=== PATIENT | female | born 1950 | race Caucasian/White ===

== ENCOUNTER 2017-10-12 14:00 | Inpatient (IN) | payer MEDICARE, OTHER ==
[~2017-10-12] VITALS: Ht 165.1 cm; Wt 69.6 kg
[~2017-10-12 14:00] MED LIST: ACET500; AMLO5 PO; ASCO500; ASPI81CH PO; ATOR20 PO; Amiodarone HCl200 MG PO; DILT180ER PO; DOCU100 PO; Daily Multiple1 EACH PO; FERSU220EL; FOLI1 PO; HYDCHL25 PO; OXYC5; POTCHL10ER PO; TRIHYD5075; VITAMIN D33000 UNIT PO
[2017-10-12] MEDS ORDERED: AZIT250 PO (14:55)
[2017-10-12] MEDS ORDERED: Ventolin/Prove6.7 GM (14:55)
[2017-10-12] MEDS ORDERED: SPIR25 PO (14:55)
[2017-10-12] MEDS ORDERED: DILTIAZEM 24HR180 M2 PO (14:55)
[2017-10-12 15:03] LABS: BASOPHILS ABSOLUTE AUTO 0.06 K/mm3 (0.00-0.23); BASOPHILS PERCENT AUTO 1 % (0-2); EOSINOPHILS PERCENT AUTO 2 % (0-6); Hematocrit 41.1 % (33.0-51.0); Hemoglobin 13.9 g/dL (11.5-16.0); IMMATURE GRAN ABSOLUTE AUTO 0.04 K/mm3 (0.00-0.10); IMMATURE GRAN PERCENT AUTO 0 % (0-1); LYMPHOCYTES ABSOLUTE AUTO 1.44 K/mm3 (0.84-5.20); LYMPHOCYTES PERCENT AUTO 15 % (21-46); MONOCYTES ABSOLUTE AUTO 0.83 K/mm3 (0.16-1.47); MONOCYTES PERCENT AUTO 8 % (4-13); Mean Corpuscular HGB 29.7 pg (26.0-34.0); Mean Corpuscular HGB Conc 33.8 g/dL (31.5-36.5); Mean Corpuscular Volume 88 fL (80-100); NEUTROPHILS ABSOLUTE AUTO 7.39 K/mm3 (1.96-9.15); NEUTROPHILS PERCENT AUTO 74 % (41-73); Platelet Count 370 K/mm3 (150-400); RDW Coefficient Variation 12.3 % (11.7-14.2); RDW Standard Deviation 39.2 fL (35.1-46.3); Red Blood Cell Count 4.68 M/mm3 (3.80-5.20); White Blood Cell Count 9.96 K/mm3 (4.00-11.30)
[2017-10-12 15:21] LABS: Alanine Aminotransfer (ALT/SGP 14 U/L (12-78); Albumin, Blood 2.7 g/dL (3.4-5.0); Albumin/Globulin Ratio 0.6 (0.8-1.8); Alk Phos 99 U/L (50-136); Anion Gap 11 mmol/L (6-16); Aspartate Aminotrans (AST/SGOT 22 U/L (12-37); Bilirubin, Total 0.5 mg/dL (0.1-1.0); Blood Urea Nitrogen 11 mg/dL (8-24); Bun/Creatinine Ratio 17.5 (12.0-20.0); CO2, Blood 23 mmol/L (21-32); Calcium, Blood 8.3 mg/dL (8.5-10.1); Chloride, Blood 105 mmol/L (98-108); Creatinine, Blood 0.63 mg/dL (0.40-1.00); Globulin, Blood 4.4 g/dL (2.2-4.0); Glomerular Filtration Rate >60 (60-); Glucose, Blood 129 mg/dL (70-99); Potassium, Blood 3.9 mmol/L (3.5-5.5); Sodium, Blood 139 mmol/L (136-145); Total Protein, Blood 7.1 g/dL (6.4-8.2); Troponin I <0.015 ng/mL (0.000-0.040)
[2017-10-13] MEDS ORDERED: ELIQUIS5 MG PO (00:23)
[2017-10-13] MEDS ORDERED: ALEN70 PO (00:24)
[2017-10-13 11:31] LABS: Antinuclear Antibody Screen Negative (Negative)
[2017-10-14 04:48] LABS: BASOPHILS ABSOLUTE AUTO 0.07 K/mm3 (0.00-0.23); BASOPHILS PERCENT AUTO 1 % (0-2); EOSINOPHILS ABSOLUTE AUTO 0.26 K/mm3 (0.00-0.68); EOSINOPHILS PERCENT AUTO 2 % (0-6); Hematocrit 40.3 % (33.0-51.0); Hemoglobin 13.4 g/dL (11.5-16.0); IMMATURE GRAN ABSOLUTE AUTO 0.05 K/mm3 (0.00-0.10); IMMATURE GRAN PERCENT AUTO 0 % (0-1); LYMPHOCYTES ABSOLUTE AUTO 1.17 K/mm3 (0.84-5.20); LYMPHOCYTES PERCENT AUTO 9 % (21-46); MONOCYTES ABSOLUTE AUTO 1.03 K/mm3 (0.16-1.47); MONOCYTES PERCENT AUTO 8 % (4-13); Mean Corpuscular HGB 29.2 pg (26.0-34.0); Mean Corpuscular HGB Conc 33.3 g/dL (31.5-36.5); Mean Corpuscular Volume 88 fL (80-100); Mean Platelet Volume 11.1 fL (9.1-12.4); NEUTROPHILS ABSOLUTE AUTO 9.92 K/mm3 (1.96-9.15); NEUTROPHILS PERCENT AUTO 79 % (41-73); Platelet Count 355 K/mm3 (150-400); RDW Coefficient Variation 12.2 % (11.7-14.2); Red Blood Cell Count 4.59 M/mm3 (3.80-5.20)
[2017-10-14 05:09] LABS: Albumin, Blood 2.3 g/dL (3.4-5.0); Anion Gap 10 mmol/L (6-16); Blood Urea Nitrogen 10 mg/dL (8-24); CO2, Blood 24 mmol/L (21-32); Calcium, Blood 8.2 mg/dL (8.5-10.1); Chloride, Blood 106 mmol/L (98-108); Creatinine, Blood 0.56 mg/dL (0.40-1.00); Glomerular Filtration Rate >60 (60-); Glucose, Blood 118 mg/dL (70-99); Phosphorus, Blood 3.2 mg/dL (2.5-4.9); Potassium, Blood 4.2 mmol/L (3.5-5.5); Sodium, Blood 140 mmol/L (136-145)
[2017-10-14 14:26] LABS: Performing Lab SYMBIODX; Test Name FLOW CYTOMETRY
[2017-10-14 14:56] LABS: RA, SEMIQUANTITATIVE 32 IU/ml (<8); Rheumatoid Factor, Serum Positive (Negative)
[2017-10-14 20:36] LABS: PCO2 Arterial 32.4 mmHg (35-45); PO2 Arterial 75.9 mmHg (80-100); pH Blood Arterial 7.47 (7.35-7.45)
[2017-10-15 05:14] LABS: BASOPHILS ABSOLUTE AUTO 0.09 K/mm3 (0.00-0.23); BASOPHILS PERCENT AUTO 1 % (0-2); EOSINOPHILS ABSOLUTE AUTO 0.29 K/mm3 (0.00-0.68); EOSINOPHILS PERCENT AUTO 2 % (0-6); Hematocrit 39.6 % (33.0-51.0); Hemoglobin 13.2 g/dL (11.5-16.0); IMMATURE GRAN ABSOLUTE AUTO 0.04 K/mm3 (0.00-0.10); IMMATURE GRAN PERCENT AUTO 0 % (0-1); LYMPHOCYTES ABSOLUTE AUTO 1.28 K/mm3 (0.84-5.20); LYMPHOCYTES PERCENT AUTO 10 % (21-46); MONOCYTES ABSOLUTE AUTO 0.96 K/mm3 (0.16-1.47); MONOCYTES PERCENT AUTO 7 % (4-13); Mean Corpuscular HGB 29.2 pg (26.0-34.0); Mean Corpuscular HGB Conc 33.3 g/dL (31.5-36.5); Mean Corpuscular Volume 88 fL (80-100); Mean Platelet Volume 11.8 fL (9.1-12.4); NEUTROPHILS ABSOLUTE AUTO 10.73 K/mm3 (1.96-9.15); NEUTROPHILS PERCENT AUTO 80 % (41-73); Platelet Count 353 K/mm3 (150-400); RDW Coefficient Variation 12.2 % (11.7-14.2); RDW Standard Deviation 39.3 fL (35.1-46.3); Red Blood Cell Count 4.52 M/mm3 (3.80-5.20); White Blood Cell Count 13.39 K/mm3 (4.00-11.30)
[2017-10-15 05:35] LABS: Anion Gap 8 mmol/L (6-16); Blood Urea Nitrogen 15 mg/dL (8-24); Bun/Creatinine Ratio 24.8 (12.0-20.0); CO2, Blood 25 mmol/L (21-32); Calcium, Blood 8.5 mg/dL (8.5-10.1); Chloride, Blood 104 mmol/L (98-108); Glomerular Filtration Rate >60 (60-); Glucose, Blood 108 mg/dL (70-99); Potassium, Blood 4.2 mmol/L (3.5-5.5); Sodium, Blood 137 mmol/L (136-145)
[2017-10-15 10:29] LABS: Adenovirus Not Detected (NOT DETECT); Bordetella pertussis Not Detected (NOT DETECT); Chlamydophila pneumoniae Not Detected (NOT DETECT); Coronavirus 229E Not Detected (NOT DETECT); Coronavirus HKU1 Not Detected (NOT DETECT); Coronavirus NL63 Not Detected (NOT DETECT); Coronavirus OC43 Not Detected (NOT DETECT); Human Metapneumovirus Not Detected (NOT DETECT); Human Rhinovirus/Enterovirus Not Detected (NOT DETECT); Influenza A/2009-H1 Not Detected (NOT DETECT); Influenza A/H1 Not Detected (NOT DETECT); Influenza A/H3 Not Detected (NOT DETECT); Influenza B Not Detected (NOT DETECT); Mycoplasma pneumoniae Not Detected (NOT DETECT); Parainfluenza Virus 1 Not Detected (NOT DETECT); Parainfluenza Virus 2 Not Detected (NOT DETECT); Parainfluenza Virus 3 Not Detected (NOT DETECT); Parainfluenza Virus 4 Not Detected (NOT DETECT); Respiratory Syncytial Virus Not Detected (NOT DETECT)
[2017-10-15 12:34] LABS: Influenza A Not Detected (NOT DETECT)
[2017-10-16 04:12] LABS: BASOPHILS ABSOLUTE AUTO 0.07 K/mm3 (0.00-0.23); BASOPHILS PERCENT AUTO 1 % (0-2); EOSINOPHILS PERCENT AUTO 3 % (0-6); Hematocrit 38.4 % (33.0-51.0); Hemoglobin 12.8 g/dL (11.5-16.0); IMMATURE GRAN ABSOLUTE AUTO 0.06 K/mm3 (0.00-0.10); IMMATURE GRAN PERCENT AUTO 0 % (0-1); LYMPHOCYTES ABSOLUTE AUTO 1.15 K/mm3 (0.84-5.20); LYMPHOCYTES PERCENT AUTO 8 % (21-46); MONOCYTES ABSOLUTE AUTO 1.18 K/mm3 (0.16-1.47); MONOCYTES PERCENT AUTO 8 % (4-13); Mean Corpuscular HGB Conc 33.3 g/dL (31.5-36.5); Mean Corpuscular Volume 87 fL (80-100); Mean Platelet Volume 11.2 fL (9.1-12.4); NEUTROPHILS ABSOLUTE AUTO 11.16 K/mm3 (1.96-9.15); NEUTROPHILS PERCENT AUTO 80 % (41-73); Platelet Count 344 K/mm3 (150-400); RDW Coefficient Variation 12.1 % (11.7-14.2); RDW Standard Deviation 39.1 fL (35.1-46.3); Red Blood Cell Count 4.42 M/mm3 (3.80-5.20); White Blood Cell Count 14.02 K/mm3 (4.00-11.30)
[2017-10-16 04:28] LABS: Anion Gap 9 mmol/L (6-16); Blood Urea Nitrogen 12 mg/dL (8-24); Bun/Creatinine Ratio 19.9 (12.0-20.0); CO2, Blood 25 mmol/L (21-32); Calcium, Blood 8.2 mg/dL (8.5-10.1); Chloride, Blood 104 mmol/L (98-108); Glomerular Filtration Rate >60 (60-); Glucose, Blood 114 mg/dL (70-99); Magnesium, Blood 1.9 mg/dL (1.6-2.4); Phosphorus, Blood 3.1 mg/dL (2.5-4.9); Sodium, Blood 138 mmol/L (136-145)
[2017-10-17 15:08] LABS: HSV-1 DNA Negative (Negative); HSV-2 DNA Negative (Negative)
[2017-10-19 04:25] LABS: BASOPHILS ABSOLUTE AUTO 0.02 K/mm3 (0.00-0.23); BASOPHILS PERCENT AUTO 0 % (0-2); EOSINOPHILS PERCENT AUTO 0 % (0-6); Hematocrit 37.7 % (33.0-51.0); Hemoglobin 12.5 g/dL (11.5-16.0); IMMATURE GRAN ABSOLUTE AUTO 0.21 K/mm3 (0.00-0.10); IMMATURE GRAN PERCENT AUTO 1 % (0-1); LYMPHOCYTES ABSOLUTE AUTO 1.19 K/mm3 (0.84-5.20); LYMPHOCYTES PERCENT AUTO 6 % (21-46); MONOCYTES ABSOLUTE AUTO 0.37 K/mm3 (0.16-1.47); MONOCYTES PERCENT AUTO 2 % (4-13); Mean Corpuscular HGB Conc 33.2 g/dL (31.5-36.5); Mean Corpuscular Volume 88 fL (80-100); Mean Platelet Volume 11.5 fL (9.1-12.4); NEUTROPHILS ABSOLUTE AUTO 19.25 K/mm3 (1.96-9.15); NEUTROPHILS PERCENT AUTO 91 % (41-73); Platelet Count 458 K/mm3 (150-400); RDW Standard Deviation 38.6 fL (35.1-46.3); Red Blood Cell Count 4.31 M/mm3 (3.80-5.20); White Blood Cell Count 21.04 K/mm3 (4.00-11.30)
[2017-10-19 05:20] LABS: Anion Gap 10 mmol/L (6-16); Blood Urea Nitrogen 23 mg/dL (8-24); Bun/Creatinine Ratio 42.4 (12.0-20.0); CO2, Blood 24 mmol/L (21-32); Calcium, Blood 8.4 mg/dL (8.5-10.1); Chloride, Blood 105 mmol/L (98-108); Creatinine, Blood 0.54 mg/dL (0.40-1.00); Glomerular Filtration Rate >60 (60-); Glucose, Blood 237 mg/dL (70-99); Potassium, Blood 4.2 mmol/L (3.5-5.5); Sodium, Blood 139 mmol/L (136-145)
[2017-10-20 05:32] LABS: BASOPHILS ABSOLUTE AUTO 0.02 K/mm3 (0.00-0.23); BASOPHILS PERCENT AUTO 0 % (0-2); EOSINOPHILS PERCENT AUTO 0 % (0-6); Hematocrit 39.9 % (33.0-51.0); Hemoglobin 13.2 g/dL (11.5-16.0); IMMATURE GRAN ABSOLUTE AUTO 0.11 K/mm3 (0.00-0.10); IMMATURE GRAN PERCENT AUTO 1 % (0-1); LYMPHOCYTES ABSOLUTE AUTO 1.16 K/mm3 (0.84-5.20); LYMPHOCYTES PERCENT AUTO 7 % (21-46); MONOCYTES ABSOLUTE AUTO 0.33 K/mm3 (0.16-1.47); MONOCYTES PERCENT AUTO 2 % (4-13); Mean Corpuscular HGB 29.1 pg (26.0-34.0); Mean Corpuscular HGB Conc 33.1 g/dL (31.5-36.5); Mean Corpuscular Volume 88 fL (80-100); Mean Platelet Volume 11.4 fL (9.1-12.4); NEUTROPHILS ABSOLUTE AUTO 14.91 K/mm3 (1.96-9.15); NEUTROPHILS PERCENT AUTO 90 % (41-73); Platelet Count 447 K/mm3 (150-400); RDW Coefficient Variation 11.9 % (11.7-14.2); RDW Standard Deviation 38.4 fL (35.1-46.3); Red Blood Cell Count 4.53 M/mm3 (3.80-5.20); White Blood Cell Count 16.53 K/mm3 (4.00-11.30)
[2017-10-20 05:56] LABS: Anion Gap 11 mmol/L (6-16); Blood Urea Nitrogen 21 mg/dL (8-24); Bun/Creatinine Ratio 43.7 (12.0-20.0); CO2, Blood 24 mmol/L (21-32); Calcium, Blood 8.1 mg/dL (8.5-10.1); Chloride, Blood 104 mmol/L (98-108); Creatinine, Blood 0.48 mg/dL (0.40-1.00); Glomerular Filtration Rate >60 (60-); Glucose, Blood 212 mg/dL (70-99); Potassium, Blood 3.9 mmol/L (3.5-5.5); Sodium, Blood 139 mmol/L (136-145)
[2017-10-20 07:53] LABS: Result SEE LABOUT RESULTS
[2017-10-21 06:18] LABS: AFB SPECIMEN PROCESSING Concentration (.)
[2017-10-21] MEDS ORDERED: Humulin R500 UNIT/1 SC (14:15)
[2017-10-21] MEDS ORDERED: PRED20 (14:16)
[2017-10-21] MEDS ORDERED: ALBU2.5V5 NEB (14:25)
[2017-10-21] MEDS ORDERED: DEEP SEA44 ML (14:28)
== END 2017-10-21 16:54 | disposition home or self-care (01) | DRG 166 ==
LOC: ER 14:00 → PCU 17:23 → MEDS 17:23 → ICUE 17:23 → MEDS 18:23 → ICUE 10-14 21:14 → PCU 10-15 20:45 → MEDS 10-16 21:14
PROVIDERS: Family Medicine; Internal Medicine; Internal Medicine Critical Care Medicine
PROC: 5A09457 Assistance with Respiratory Ventilation, 24-96 Consecutive Hours, Continuous Positive Airway Pressure (ICD-10-PCS; 2017-10-14)
PROC: 0B9H8ZX Drainage of Lung Lingula, Via Natural or Artificial Opening Endoscopic, Diagnostic (ICD-10-PCS; principal; 2017-10-14 12:30)
PROC: 0BBD8ZZ Excision of Right Middle Lung Lobe, Via Natural or Artificial Opening Endoscopic (ICD-10-PCS; 2017-10-14 12:30)
DX: J84.116 Cryptogenic organizing pneumonia (principal); J96.21 Acute and chronic respiratory failure with hypoxia; I50.32 Chronic diastolic (congestive) heart failure; I48.91 Unspecified atrial fibrillation; I11.0 Hypertensive heart disease with heart failure; E78.5 Hyperlipidemia, unspecified; M81.0 Age-related osteoporosis without current pathological fracture; R04.0 Epistaxis; Z95.3 Presence of xenogenic heart valve; Z87.891 Personal history of nicotine dependence; Z79.01 Long term (current) use of anticoagulants; Z79.83 Long term (current) use of bisphosphonates; R73.9 Hyperglycemia, unspecified; T38.0X5A Adverse effect of glucocorticoids and synthetic analogues, initial encounter
CPT/HCPCS: 36415; 36600; 71045; 71046; 71260; 80048; 80053; 80069; 82803; 82947; 83735; 83880; 84100; 84443; 84484; 85025; 85651; 86038; 86430; 86431; 87070; 87205; 87449; 87486; 87529; 87581; 87633; 87798; 88108; 88305; 88312; 93005; 93010; 94640; 94660; 94760; 94761; 94762; 96365; 99285-25; J0696; J1650; J1815; J2001; J2250; J2930; J3010; J7120; Q9967

== ENCOUNTER → 2017-11-18 | Outpatient (CLI) | payer MEDICARE, OTHER ==
[~2017-11-18] MED LIST changes: +ALBU2.5V5 NEB; +ALEN70 PO; +AZIT250 PO; +DEEP SEA44 ML; +DILTIAZEM 24HR180 M2 PO; +ELIQUIS5 MG PO; +Humulin R500 UNIT/1 SC; +PRED20; +SPIR25 PO; +Ventolin/Prove6.7 GM
== END | disposition home or self-care (01) ==
LOC: PLD 14:51 → LAB SHORT 14:51
DX: D48.5 Neoplasm of uncertain behavior of skin (principal)
CPT/HCPCS: 88305

== ENCOUNTER → 2018-07-02 | Outpatient (CLI) | payer MEDICARE, OTHER | END | disposition home or self-care (01) | LOC: LAB SHORT 07:45 → PLD 07:45 | DX: C44.729 Squamous cell carcinoma of skin of left lower limb, including hip (principal) | CPT/HCPCS: 88305 ==

== ENCOUNTER → 2018-09-08 | Outpatient (CLI) | payer MEDICARE, OTHER | END | disposition home or self-care (01) | LOC: PLD 14:14 → LAB SHORT 14:14 | DX: C44.729 Squamous cell carcinoma of skin of left lower limb, including hip (principal) | CPT/HCPCS: 88305 ==

== ENCOUNTER → 2018-10-06 | Outpatient (CLI) | payer MEDICARE, OTHER | END | disposition home or self-care (01) | LOC: LAB SHORT 07:56 → PLD 07:56 | DX: C44.729 Squamous cell carcinoma of skin of left lower limb, including hip (principal) | CPT/HCPCS: 88305 ==

== ENCOUNTER → 2018-11-18 | Outpatient (CLI) | payer MEDICARE, OTHER | END | disposition home or self-care (01) | LOC: LAB SHORT 10:43 → PLD 10:43 | DX: C44.519 Basal cell carcinoma of skin of other part of trunk (principal); D22.5 Melanocytic nevi of trunk | CPT/HCPCS: 88305 ==

== ENCOUNTER → 2020-05-31 | Outpatient (CLI) | payer MEDICARE, OTHER | END | disposition home or self-care (01) | LOC: LAB SHORT 11:34 → LAB 11:34 | DX: D22.5 Melanocytic nevi of trunk (principal); L57.0 Actinic keratosis | CPT/HCPCS: 88305; 88312 ==

== ENCOUNTER → 2020-12-06 | Outpatient (CLI) | payer MEDICARE, OTHER | END | disposition home or self-care (01) | LOC: LAB 11:06 → LAB SHORT 11:06 | DX: C44.01 Basal cell carcinoma of skin of lip (principal); C44.41 Basal cell carcinoma of skin of scalp and neck | CPT/HCPCS: 88305 ==

== ENCOUNTER → 2021-01-24 | Outpatient (CLI) | payer MEDICARE, OTHER | LOC: LAB SHORT 14:53 → LAB 14:53 | DX: C44.41 Basal cell carcinoma of skin of scalp and neck (principal); Z91.048 Other nonmedicinal substance allergy status; Z91.040 Latex allergy status | CPT/HCPCS: 88305 ==

== ENCOUNTER 2021-01-25 00:28 | Emergency (ER) | payer MEDICARE, OTHER ==
[~2021-01-25] VITALS: Ht 165.1 cm; Wt 68.0 kg
== END 2021-01-25 04:21 | disposition home or self-care (01) ==
LOC: ER 00:28
DX: L76.22 Postprocedural hemorrhage of skin and subcutaneous tissue following other procedure (principal); I50.9 Heart failure, unspecified; Z91.040 Latex allergy status; Z91.048 Other nonmedicinal substance allergy status; Z79.82 Long term (current) use of aspirin; Z79.4 Long term (current) use of insulin; Z79.899 Other long term (current) drug therapy; Z79.52 Long term (current) use of systemic steroids; Z87.891 Personal history of nicotine dependence
CPT/HCPCS: 99283

== ENCOUNTER 2021-09-27 10:05 | Day surgery (SDC) | payer MEDICARE, OTHER ==
[~2021-09-27] VITALS: Ht 165.1 cm; Wt 71.1 kg
[~2021-09-27 10:05] MED LIST changes: +ALBU90OI INH; +METF500 PO
--- NOTE | 2021-09-27 10:55 | NUR ---
09/27/21 Luisa Chairez @ 5500, LYNDSEY @ [id number]
--- NOTE | 2021-09-27 12:26 | NUR ---
09/27/21 1226 Marlin Santiago S PT. DID MENTION THAT SHE HAD SOME STINGING IN HER RIGHT EYE. PT. INSTRUCTED THAT IF IT BOTHERED HER SHE COULD TAKE OTC PAIN RELIEVER OR JUST LAYING BACK & SHUTTING HER EYE MAY HELP ALSO. INSTRUCTED PT. THAT THE EYE DROPS COULD CAUSE SOME STINGING TOO. PT. VERBALIZES THE EYE DROPS DO STING & SHE DOES CLOSE HER EYE WHICH HELPS.
== END 2021-09-27 12:15 | disposition home or self-care (01) ==
LOC: ORSCSDS 10:05
PROVIDERS: Ophthalmology
PROC: 08RJ3JZ Replacement of Right Lens with Synthetic Substitute, Percutaneous Approach (ICD-10-PCS; principal; 2021-09-27 11:30)
DX: H25.11 Age-related nuclear cataract, right eye (principal); I48.0 Paroxysmal atrial fibrillation; I47.1 Supraventricular tachycardia; Z79.01 Long term (current) use of anticoagulants; Z79.899 Other long term (current) drug therapy
CPT/HCPCS: 82947; J2001; J2250; J3010; J3301; J7040; V2632

== ENCOUNTER → 2022-01-02 | Outpatient (CLI) | payer MEDICARE, OTHER | END | disposition home or self-care (01) | LOC: LAB SHORT 11:07 → LAB 11:07 | DX: C44.311 Basal cell carcinoma of skin of nose (principal) | CPT/HCPCS: 88305 ==

== ENCOUNTER 2022-12-10 10:29 | Emergency (ER) | payer MEDICARE, OTHER ==
[~2022-12-10] VITALS: Ht 165.1 cm; Wt 65.3 kg
[~2022-12-10 10:29] MED LIST changes: +DILT180 PO; -DILTIAZEM 24HR180 M2 PO
[2022-12-10] MEDS ORDERED: HYDCHL25 PO (10:53)
[2022-12-10 10:56] LABS: BASOPHILS ABSOLUTE AUTO 0.05 K/mm3 (0.00-0.23); BASOPHILS PERCENT AUTO 1 % (0-2); EOSINOPHILS ABSOLUTE AUTO 0.15 K/mm3 (0.00-0.68); EOSINOPHILS PERCENT AUTO 2 % (0-6); Hematocrit 42.2 % (33.0-51.0); Hemoglobin 14.8 g/dL (11.5-16.0); IMMATURE GRAN ABSOLUTE AUTO 0.02 K/mm3 (0.00-0.10); IMMATURE GRAN PERCENT AUTO 0 % (0-1); LYMPHOCYTES ABSOLUTE AUTO 1.66 K/mm3 (0.84-5.20); LYMPHOCYTES PERCENT AUTO 18 % (21-46); MONOCYTES ABSOLUTE AUTO 0.64 K/mm3 (0.16-1.47); MONOCYTES PERCENT AUTO 7 % (4-13); Mean Corpuscular HGB 30.7 pg (26.0-34.0); Mean Corpuscular HGB Conc 35.1 g/dL (31.5-36.5); Mean Corpuscular Volume 88 fL (80-100); Mean Platelet Volume 12.6 fL (9.1-12.4); NEUTROPHILS ABSOLUTE AUTO 6.87 K/mm3 (1.96-9.15); NEUTROPHILS PERCENT AUTO 73 % (41-73); Platelet Count 303 K/mm3 (150-400); RDW Coefficient Variation 13.3 % (11.7-14.2); RDW Standard Deviation 41.9 fL (35.1-46.3); Red Blood Cell Count 4.82 M/mm3 (3.80-5.20); White Blood Cell Count 9.39 K/mm3 (4.00-11.30)
[2022-12-10 11:50] LABS: Bun/Creatinine Ratio 16.9 (12.0-20.0); Calcium, Blood 8.8 mg/dL (8.5-10.1); Creatinine, Blood 0.71 mg/dL (0.40-1.00); Potassium, Blood 4.2 mmol/L (3.5-5.5); Thyroid Stimulating Hormone 1.24 uIU/mL (0.360-4.800)
[2022-12-10 12:13] VITALS: BP 115/99
[2022-12-10] MEDS ORDERED: Toprol Xl25 MG PO (12:51)
== END 2022-12-10 13:12 | disposition home or self-care (01) ==
LOC: ER 10:29
PROVIDERS: Emergency Medicine
DX: I48.91 Unspecified atrial fibrillation (principal); Z91.040 Latex allergy status; Z91.048 Other nonmedicinal substance allergy status; Z88.8 Allergy status to other drugs, medicaments and biological substances; Z79.899 Other long term (current) drug therapy; Z79.82 Long term (current) use of aspirin; Z79.84 Long term (current) use of oral hypoglycemic drugs; I50.9 Heart failure, unspecified; Z87.891 Personal history of nicotine dependence
CPT/HCPCS: 71045; 80048; 84443; 85025; 93005; 93010; 96374; 99285-25; J7030

== ENCOUNTER 2023-01-05 23:10 | Observation (INO) | payer MEDICARE, OTHER ==
[~2023-01-05] VITALS: Ht 165.1 cm; Wt 64.4 kg
[~2023-01-05 23:10] MED LIST changes: +Toprol Xl25 MG PO
[2023-01-05 23:52] LABS: BASOPHILS ABSOLUTE AUTO 0.04 K/mm3 (0.00-0.23); BASOPHILS PERCENT AUTO 0 % (0-2); EOSINOPHILS ABSOLUTE AUTO 0.34 K/mm3 (0.00-0.68); EOSINOPHILS PERCENT AUTO 4 % (0-6); Hematocrit 42.3 % (33.0-51.0); Hemoglobin 14.2 g/dL (11.5-16.0); IMMATURE GRAN ABSOLUTE AUTO 0.01 K/mm3 (0.00-0.10); IMMATURE GRAN PERCENT AUTO 0 % (0-1); LYMPHOCYTES ABSOLUTE AUTO 1.97 K/mm3 (0.84-5.20); LYMPHOCYTES PERCENT AUTO 22 % (21-46); MONOCYTES PERCENT AUTO 9 % (4-13); Mean Corpuscular HGB 30.2 pg (26.0-34.0); Mean Corpuscular HGB Conc 33.6 g/dL (31.5-36.5); Mean Corpuscular Volume 90 fL (80-100); NEUTROPHILS ABSOLUTE AUTO 5.76 K/mm3 (1.96-9.15); NEUTROPHILS PERCENT AUTO 65 % (41-73); Platelet Count 226 K/mm3 (150-400); RDW Coefficient Variation 13.3 % (11.7-14.2); RDW Standard Deviation 43.8 fL (35.1-46.3); White Blood Cell Count 8.92 K/mm3 (4.00-11.30)
[2023-01-06 00:13] LABS: Albumin, Blood 3.7 g/dL (3.4-5.0); Albumin/Globulin Ratio 1.1 (0.8-1.8); Bilirubin, Total 0.6 mg/dL (0.1-1.0); Bun/Creatinine Ratio 26.8 (12.0-20.0); Calcium, Blood 9.3 mg/dL (8.5-10.1); Creatinine, Blood 0.86 mg/dL (0.40-1.00); Globulin, Blood 3.4 g/dL (2.2-4.0); Potassium, Blood 3.8 mmol/L (3.5-5.5); Total Protein, Blood 7.1 g/dL (6.4-8.2)
[2023-01-06 02:38] LABS: Thyroid Stimulating Hormone 2.39 uIU/mL (0.360-4.800)
[2023-01-06 04:00] VITALS: BP 135/92
[2023-01-06] MEDS ORDERED: METO100ER PO (04:08)
[2023-01-06 04:10] LABS: BASOPHILS ABSOLUTE AUTO 0.06 K/mm3 (0.00-0.23); BASOPHILS PERCENT AUTO 1 % (0-2); EOSINOPHILS ABSOLUTE AUTO 0.32 K/mm3 (0.00-0.68); EOSINOPHILS PERCENT AUTO 3 % (0-6); Hematocrit 40.8 % (33.0-51.0); IMMATURE GRAN ABSOLUTE AUTO 0.02 K/mm3 (0.00-0.10); IMMATURE GRAN PERCENT AUTO 0 % (0-1); LYMPHOCYTES ABSOLUTE AUTO 2.28 K/mm3 (0.84-5.20); LYMPHOCYTES PERCENT AUTO 22 % (21-46); MONOCYTES ABSOLUTE AUTO 0.85 K/mm3 (0.16-1.47); MONOCYTES PERCENT AUTO 8 % (4-13); Mean Corpuscular HGB 30.8 pg (26.0-34.0); Mean Corpuscular HGB Conc 34.3 g/dL (31.5-36.5); Mean Corpuscular Volume 90 fL (80-100); Mean Platelet Volume 11.2 fL (9.1-12.4); NEUTROPHILS PERCENT AUTO 66 % (41-73); Platelet Count 230 K/mm3 (150-400); RDW Coefficient Variation 13.3 % (11.7-14.2); RDW Standard Deviation 43.9 fL (35.1-46.3); Red Blood Cell Count 4.55 M/mm3 (3.80-5.20); White Blood Cell Count 10.33 K/mm3 (4.00-11.30)
[2023-01-06 04:46] LABS: Albumin, Blood 3.5 g/dL (3.4-5.0); Anion Gap 4 mmol/L (6-16); Blood Urea Nitrogen 18 mg/dL (8-24); Bun/Creatinine Ratio 23.9 (12.0-20.0); CO2, Blood 24 mmol/L (21-32); Calcium, Blood 8.9 mg/dL (8.5-10.1); Chloride, Blood 110 mmol/L (98-108); Creatinine, Blood 0.75 mg/dL (0.40-1.00); Glomerular Filtration Rate 84 (60-); Glucose, Blood 120 mg/dL (70-99); Magnesium, Blood 2.2 mg/dL (1.6-2.4); Phosphorus, Blood 3.7 mg/dL (2.5-4.9); Potassium, Blood 4.1 mmol/L (3.5-5.5); Sodium, Blood 138 mmol/L (136-145)
[2023-01-06 05:36] VITALS: BP 108/69
--- NOTE | 2023-01-06 06:31 | NUR ---
ASSUMPTION OF CARE AND SHIFT SUMMARY PT ARRIVED TO PCU AT 0350. ARRIVED FROM ED, REPORT FROM MONSTER MARTINEZ. PT TRANSFERRED INDEPENDENTLY TO HOSPITAL BED. ARRIVED ON RA, NO SOB NOTED. PT DENIES CP OR PRESSURE, PALPITATIONS, DIZZINESS OR LIGHTHEADNESS. PT ARRIVED ON CARDIZEM GTT AT 10 MLS/HR. HRR AFIB IN 100 - 120'S. PT NOW CONTINUES IN AFIB W RATE IN 80 - 90'S. CARDIZEM GTT STANDBY AT BEDSIDE. VSS REMAIN STABLE; BP 1 TEENS - 120'S. PT ORIENTED TO ROOM AND CALL LIGHT. PT RESTING. WILL UPDATE ONCOMING JUAN
[2023-01-06 07:45] VITALS: BP 116/84
--- NOTE | 2023-01-06 07:45 | NUR ---
Initial assessment: Patient is awake lying in bed, she is alert and oriented x4. She denies CP, pressure, or SOB at this time. HR irregular, she has chronic A-Fib currently the rate is running 100-130s. LS CTA, Biox high 90s on RA. BT+. PPP. VSS. Patient denies needs at this time. Talked with the patient regarding her home medications, called Dr. Starkey to get some of her home medications reordered to keep her off the Cardizem gtt. Patient denies other needs at this time. Call light in reach.
[2023-01-06 11:47] VITALS: BP 128/80
[2023-01-06] MEDS ORDERED: METO25 PO (13:40)
--- NOTE | 2023-01-06 14:30 | NUR ---
Discharge: Dr. Starkey came to the room and is comfortable discharging her. IV DC'd cath intact. Patient verbalized understanding of discharge instructions. Patient was able to ambulate out to home with her friend.
== END 2023-01-06 14:28 | disposition home or self-care (01) ==
LOC: ER 23:10 → PCU 23:11 → ER 01-06 02:19 → PCU 01-06 02:19
PROVIDERS: Family Medicine; Physician Assistant; ADMIT Internal Medicine
DX: I48.20 Chronic atrial fibrillation, unspecified (principal); I11.0 Hypertensive heart disease with heart failure; I50.30 Unspecified diastolic (congestive) heart failure; E11.9 Type 2 diabetes mellitus without complications; M81.0 Age-related osteoporosis without current pathological fracture; F10.90 Alcohol use, unspecified, uncomplicated; E78.5 Hyperlipidemia, unspecified; Z91.040 Latex allergy status; Z79.01 Long term (current) use of anticoagulants; Z79.82 Long term (current) use of aspirin; Z79.84 Long term (current) use of oral hypoglycemic drugs; Z87.891 Personal history of nicotine dependence
CPT/HCPCS: 36415; 80053; 80069; 82947; 83735; 84443; 85025; 93005; 93010; 94760; 96361; 96365; 96366; 96375; 96376; 99285-25; A9270; G0378; J7030

== ENCOUNTER 2023-03-05 12:52 | Day surgery (SDC) | payer MEDICARE, OTHER ==
[2023-03-05] VITALS (13 sets, daily range): BP systolic 98–142; BP diastolic 56–88
[~2023-03-05] VITALS: Ht 165.1 cm; Wt 68.2 kg
[~2023-03-05 12:52] MED LIST changes: +METO100ER PO; +METO25 PO
--- NOTE | 2023-03-05 14:31 | NUR ---
TIME OUT DONE, PT MEDICATED BY ANESTHESIA. SYNCHRONIZED CARDIOVERSION DONE WITH 200J X1.
--- NOTE | 2023-03-05 14:54 | NUR ---
PT VERBALIZE D/C INSTRUCTIONS. PT S/O BACK TO ROOM. IV D/C CATHETER INTACT. PT WHEELED OUT OF DEPT.
== END 2023-03-05 22:49 | disposition home or self-care (01) ==
LOC: MHTC 12:52
DX: I48.0 Paroxysmal atrial fibrillation (principal); Z95.4 Presence of other heart-valve replacement; E78.5 Hyperlipidemia, unspecified; I15.9 Secondary hypertension, unspecified; I50.30 Unspecified diastolic (congestive) heart failure; Z79.01 Long term (current) use of anticoagulants; Z87.891 Personal history of nicotine dependence
CPT/HCPCS: 92960; 93005; 93010; J2704; J7030

== ENCOUNTER → 2023-04-17 | Outpatient (CLI) | payer MEDICARE, OTHER | END | disposition home or self-care (01) | LOC: LAB 14:58 → LAB SHORT 14:58 | DX: C44.319 Basal cell carcinoma of skin of other parts of face (principal) | CPT/HCPCS: 88305 ==

== ENCOUNTER 2023-05-25 15:30 | Emergency (ER) | payer MEDICARE, OTHER ==
[~2023-05-25] VITALS: Ht 162.6 cm; Wt 68.0 kg
[2023-05-25 16:30] LABS: BASOPHILS ABSOLUTE AUTO 0.08 K/mm3 (0.00-0.23); BASOPHILS PERCENT AUTO 1 % (0-2); EOSINOPHILS ABSOLUTE AUTO 0.39 K/mm3 (0.00-0.68); EOSINOPHILS PERCENT AUTO 4 % (0-6); IMMATURE GRAN ABSOLUTE AUTO 0.02 K/mm3 (0.00-0.10); IMMATURE GRAN PERCENT AUTO 0 % (0-1); LYMPHOCYTES ABSOLUTE AUTO 2.36 K/mm3 (0.84-5.20); LYMPHOCYTES PERCENT AUTO 23 % (21-46); MONOCYTES ABSOLUTE AUTO 0.84 K/mm3 (0.16-1.47); MONOCYTES PERCENT AUTO 8 % (4-13); Mean Corpuscular HGB 29.6 pg (26.0-34.0); Mean Corpuscular HGB Conc 33.3 g/dL (31.5-36.5); Mean Corpuscular Volume 89 fL (80-100); Mean Platelet Volume 11.5 fL (9.1-12.4); NEUTROPHILS ABSOLUTE AUTO 6.38 K/mm3 (1.96-9.15); NEUTROPHILS PERCENT AUTO 63 % (41-73); Platelet Count 255 K/mm3 (150-400); RDW Coefficient Variation 12.6 % (11.7-14.2); RDW Standard Deviation 41.3 fL (35.1-46.3); Red Blood Cell Count 4.73 M/mm3 (3.80-5.20); White Blood Cell Count 10.07 K/mm3 (4.00-11.30)
[2023-05-25 16:52] LABS: Albumin, Blood 3.5 g/dL (3.4-5.0); Bilirubin, Total 0.5 mg/dL (0.1-1.0); Bun/Creatinine Ratio 33.4 (12.0-20.0); Calcium, Blood 9.2 mg/dL (8.5-10.1); Creatinine, Blood 0.87 mg/dL (0.40-1.00); Globulin, Blood 3.5 g/dL (2.2-4.0); Potassium, Blood 3.6 mmol/L (3.5-5.5)
[2023-05-25] MEDS ORDERED: Diltiazem HCl 5 MG / ML 5ML Vial IV ONE ×2 (18:05→18:45)
[2023-05-25 19:30] VITALS: BP 119/94
== END 2023-05-25 19:45 | disposition home or self-care (01) ==
LOC: ER 15:30
PROVIDERS: Physician Assistant
DX: I48.91 Unspecified atrial fibrillation (principal); I50.9 Heart failure, unspecified; Z91.040 Latex allergy status; Z91.048 Other nonmedicinal substance allergy status; Z79.899 Other long term (current) drug therapy; Z79.82 Long term (current) use of aspirin; Z79.01 Long term (current) use of anticoagulants; Z87.891 Personal history of nicotine dependence
CPT/HCPCS: 80053; 83735; 83880; 84484; 85025; 96374; 96376; 99285-25

== ENCOUNTER 2023-09-08 10:18 | Emergency (ER) | payer MEDICARE, OTHER ==
[~2023-09-08] VITALS: Ht 165.1 cm; Wt 68.0 kg
[~2023-09-08 10:18] MED LIST changes: +DILT60
[2023-09-08] MEDS ORDERED: FUROSEMIDE20 MG PO (10:54)
[2023-09-08 10:58] LABS: Source, Urine Clean Catch
[2023-09-08 11:01] LABS: Bilirubin, Urine Neg (Neg); Blood, Urine Neg (Neg); Glucose Qualitative, Urine Neg (Neg); Ketones, Urine Neg (Neg); Leukocyte Esterase, Urine Neg (Neg); Nitrite, Urine Neg (Neg); Protein, Urine Neg (Neg); Urobilinogen, Urine NORM (Normal)
[2023-09-08 11:03] LABS: BASOPHILS ABSOLUTE AUTO 0.06 K/mm3 (0.00-0.23); BASOPHILS PERCENT AUTO 1 % (0-2); EOSINOPHILS ABSOLUTE AUTO 0.19 K/mm3 (0.00-0.68); EOSINOPHILS PERCENT AUTO 2 % (0-6); Hematocrit 38.7 % (33.0-51.0); Hemoglobin 12.6 g/dL (11.5-16.0); IMMATURE GRAN ABSOLUTE AUTO 0.05 K/mm3 (0.00-0.10); IMMATURE GRAN PERCENT AUTO 0 % (0-1); LYMPHOCYTES ABSOLUTE AUTO 1.57 K/mm3 (0.84-5.20); LYMPHOCYTES PERCENT AUTO 13 % (21-46); MONOCYTES ABSOLUTE AUTO 0.84 K/mm3 (0.16-1.47); MONOCYTES PERCENT AUTO 7 % (4-13); Mean Corpuscular HGB 28.1 pg (26.0-34.0); Mean Corpuscular HGB Conc 32.6 g/dL (31.5-36.5); Mean Corpuscular Volume 86 fL (80-100); Mean Platelet Volume 11.5 fL (9.1-12.4); NEUTROPHILS ABSOLUTE AUTO 9.01 K/mm3 (1.96-9.15); NEUTROPHILS PERCENT AUTO 77 % (41-73); Platelet Count 289 K/mm3 (150-400); RDW Coefficient Variation 13.7 % (11.7-14.2); RDW Standard Deviation 42.9 fL (35.1-46.3); Red Blood Cell Count 4.49 M/mm3 (3.80-5.20); White Blood Cell Count 11.72 K/mm3 (4.00-11.30)
[2023-09-08] MEDS ORDERED: Ketorolac Tromethamine 30mg Vial IV ONE (11:10)
[2023-09-08] MEDS ORDERED: NS 1,000 ML IV SCH (11:10)
[2023-09-08] MEDS ORDERED: Methocarbamol 500 MG Tab PO ONE (11:10)
[2023-09-08 11:23] LABS: Albumin, Blood 3.6 g/dL (3.4-5.0); Albumin/Globulin Ratio 0.9 (0.8-1.8); Bilirubin, Total 0.9 mg/dL (0.1-1.0); Bun/Creatinine Ratio 21.8 (12.0-20.0); Calcium, Blood 9.3 mg/dL (8.5-10.1); Creatinine, Blood 1.01 mg/dL (0.40-1.00); Globulin, Blood 3.8 g/dL (2.2-4.0); Potassium, Blood 4.2 mmol/L (3.5-5.5); Total Protein, Blood 7.4 g/dL (6.4-8.2)
[2023-09-08 11:30] LABS: Appearance, Urine Clear (Clear); Color, Urine Yellow (P-Yellow)
[2023-09-08] MEDS ORDERED: Robaxin750 MG PO (13:00)
[2023-09-08 13:18] VITALS: BP 110/83
== END 2023-09-08 13:15 | disposition home or self-care (01) ==
LOC: ER 10:18
PROVIDERS: Physician Assistant
DX: S39.012A Strain of muscle, fascia and tendon of lower back, initial encounter (principal); I48.91 Unspecified atrial fibrillation; R73.9 Hyperglycemia, unspecified; X58.XXXA Exposure to other specified factors, initial encounter; Z87.891 Personal history of nicotine dependence; Z91.040 Latex allergy status; Z88.8 Allergy status to other drugs, medicaments and biological substances; Z79.899 Other long term (current) drug therapy
CPT/HCPCS: 74177; 80053; 81003; 83735; 85025; 93005; 93010; 96374-59; 99284-25; A9270; J1885; J7030; Q9967

== ENCOUNTER 2023-09-16 10:58 | Emergency (ER) | payer MEDICARE, OTHER ==
[~2023-09-16] VITALS: Ht 162.6 cm; Wt 68.0 kg
[~2023-09-16 10:58] MED LIST changes: +FUROSEMIDE20 MG PO; +Robaxin750 MG PO
[2023-09-16] MEDS ORDERED: Diltiazem HCl 5 MG / ML 5ML Vial IV ONE ×3 (11:20→12:55)
[2023-09-16 11:52] LABS: BASOPHILS ABSOLUTE AUTO 0.02 K/mm3 (0.00-0.23); BASOPHILS PERCENT AUTO 0 % (0-2); EOSINOPHILS ABSOLUTE AUTO 0.07 K/mm3 (0.00-0.68); EOSINOPHILS PERCENT AUTO 1 % (0-6); Hematocrit 41.5 % (33.0-51.0); Hemoglobin 13.7 g/dL (11.5-16.0); IMMATURE GRAN ABSOLUTE AUTO 0.02 K/mm3 (0.00-0.10); IMMATURE GRAN PERCENT AUTO 0 % (0-1); LYMPHOCYTES ABSOLUTE AUTO 1.13 K/mm3 (0.84-5.20); LYMPHOCYTES PERCENT AUTO 16 % (21-46); MONOCYTES ABSOLUTE AUTO 0.73 K/mm3 (0.16-1.47); MONOCYTES PERCENT AUTO 10 % (4-13); Mean Corpuscular HGB 28.7 pg (26.0-34.0); Mean Corpuscular Volume 87 fL (80-100); Mean Platelet Volume 11.2 fL (9.1-12.4); NEUTROPHILS ABSOLUTE AUTO 5.33 K/mm3 (1.96-9.15); NEUTROPHILS PERCENT AUTO 73 % (41-73); Platelet Count 320 K/mm3 (150-400); RDW Coefficient Variation 14.5 % (11.7-14.2); RDW Standard Deviation 46.1 fL (35.1-46.3); Red Blood Cell Count 4.78 M/mm3 (3.80-5.20)
[2023-09-16 12:15] LABS: Magnesium, Blood 1.9 mg/dL (1.6-2.4)
[2023-09-16 12:17] LABS: Albumin, Blood 3.9 g/dL (3.4-5.0); Albumin/Globulin Ratio 0.8 (0.8-1.8); Bilirubin, Total 0.9 mg/dL (0.1-1.0); Bun/Creatinine Ratio 15.9 (12.0-20.0); Calcium, Blood 9.5 mg/dL (8.5-10.1); Creatinine, Blood 0.88 mg/dL (0.40-1.00); Globulin, Blood 4.6 g/dL (2.2-4.0); Potassium, Blood 4.1 mmol/L (3.5-5.5); Total Protein, Blood 8.5 g/dL (6.4-8.2)
[2023-09-16 14:36] VITALS: BP 136/99
== END 2023-09-16 14:38 | disposition home or self-care (01) ==
LOC: ER 10:58
PROVIDERS: Physician Assistant
DX: I48.92 Unspecified atrial flutter (principal); I11.9 Hypertensive heart disease without heart failure; I50.30 Unspecified diastolic (congestive) heart failure; Z87.891 Personal history of nicotine dependence; Z79.899 Other long term (current) drug therapy; Z91.040 Latex allergy status; Z88.8 Allergy status to other drugs, medicaments and biological substances
CPT/HCPCS: 80053; 83735; 85025; 93005; 93010; 96374; 96376; 99285-25

== ENCOUNTER 2024-04-10 08:49 | Emergency (ER) | payer MEDICARE, OTHER ==
[~2024-04-10] VITALS: Ht 165.1 cm; Wt 64.0 kg
[2024-04-10 10:38] LABS: BASOPHILS ABSOLUTE AUTO 0.06 K/mm3 (0.00-0.23); BASOPHILS PERCENT AUTO 1 % (0-2); EOSINOPHILS ABSOLUTE AUTO 0.01 K/mm3 (0.00-0.68); EOSINOPHILS PERCENT AUTO 0 % (0-6); Hematocrit 32.2 % (33.0-51.0); Hemoglobin 10.4 g/dL (11.5-16.0); IMMATURE GRAN ABSOLUTE AUTO 0.04 K/mm3 (0.00-0.10); IMMATURE GRAN PERCENT AUTO 0 % (0-1); LYMPHOCYTES PERCENT AUTO 9 % (21-46); MONOCYTES ABSOLUTE AUTO 1.13 K/mm3 (0.16-1.47); MONOCYTES PERCENT AUTO 11 % (4-13); Mean Corpuscular HGB 26.4 pg (26.0-34.0); Mean Corpuscular HGB Conc 32.3 g/dL (31.5-36.5); Mean Corpuscular Volume 82 fL (80-100); Mean Platelet Volume 11.6 fL (9.1-12.4); NEUTROPHILS ABSOLUTE AUTO 8.57 K/mm3 (1.96-9.15); NEUTROPHILS PERCENT AUTO 79 % (41-73); Platelet Count 299 K/mm3 (150-400); RDW Coefficient Variation 14.8 % (11.7-14.2); RDW Standard Deviation 43.8 fL (35.1-46.3); Red Blood Cell Count 3.94 M/mm3 (3.80-5.20); White Blood Cell Count 10.81 K/mm3 (4.00-11.30)
[2024-04-10 10:58] LABS: Albumin, Blood 3.4 g/dL (3.4-5.0); Albumin/Globulin Ratio 0.9 (0.8-1.8); Bilirubin, Total 0.8 mg/dL (0.1-1.0); Bun/Creatinine Ratio 24.2 (12.0-20.0); Calcium, Blood 9.4 mg/dL (8.5-10.1); Creatinine, Blood 1.24 mg/dL (0.40-1.00); Globulin, Blood 3.8 g/dL (2.2-4.0); Total Protein, Blood 7.2 g/dL (6.4-8.2)
[2024-04-10 12:25] LABS: Source, Urine Clean Catch
[2024-04-10 12:29] LABS: Bilirubin, Urine Neg (Neg); Blood, Urine Neg (Neg); Glucose Qualitative, Urine Neg (Neg); Ketones, Urine Neg (Neg); Leukocyte Esterase, Urine Neg (Neg); Nitrite, Urine Neg (Neg); Protein, Urine Neg (Neg); Specific Gravity, Urine 1.005 (1.003-1.022); Urobilinogen, Urine NORM (Normal); pH, Urine 6.5 (5.0-8.0)
[2024-04-10 12:30] LABS: Appearance, Urine Clear (Clear); Color, Urine Pale Yellow (P-Yellow)
[2024-04-10 12:45] VITALS: BP 126/62
== END 2024-04-10 13:03 | disposition home or self-care (01) ==
LOC: ER 08:49
PROVIDERS: Student in an Organized Health Care Education/Training Program
DX: M54.50 Low back pain, unspecified (principal); I11.0 Hypertensive heart disease with heart failure; I50.30 Unspecified diastolic (congestive) heart failure; I48.91 Unspecified atrial fibrillation; Z87.891 Personal history of nicotine dependence; Z79.899 Other long term (current) drug therapy; Z91.040 Latex allergy status; Z91.048 Other nonmedicinal substance allergy status; Z88.8 Allergy status to other drugs, medicaments and biological substances
CPT/HCPCS: 71046; 80053; 81003; 83880; 84484; 85025; 93005; 93010; 99284-25

== ENCOUNTER 2024-06-03 11:51 | Inpatient (IN) | payer MEDICARE, OTHER ==
[~2024-06-03] VITALS: Ht 162.6 cm; Wt 57.7 kg
[2024-06-03] VITALS (11 sets, daily range): BP systolic 99–123; BP diastolic 57–107
[2024-06-03 12:46] LABS: BASOPHILS ABSOLUTE AUTO 0.04 K/mm3 (0.00-0.23); BASOPHILS PERCENT AUTO 0 % (0-2); EOSINOPHILS ABSOLUTE AUTO 0.02 K/mm3 (0.00-0.68); EOSINOPHILS PERCENT AUTO 0 % (0-6); Hematocrit 22.3 % (33.0-51.0); Hemoglobin 6.7 g/dL (11.5-16.0); IMMATURE GRAN ABSOLUTE AUTO 0.07 K/mm3 (0.00-0.10); IMMATURE GRAN PERCENT AUTO 1 % (0-1); LYMPHOCYTES PERCENT AUTO 10 % (21-46); MONOCYTES ABSOLUTE AUTO 0.96 K/mm3 (0.16-1.47); MONOCYTES PERCENT AUTO 8 % (4-13); Mean Corpuscular HGB 21.6 pg (26.0-34.0); Mean Corpuscular Volume 72 fL (80-100); NEUTROPHILS ABSOLUTE AUTO 10.08 K/mm3 (1.96-9.15); NEUTROPHILS PERCENT AUTO 81 % (41-73); NRBC ABSOLUTE 0.03 K/mm3 (0.00-0.02); NRBC Auto 0.2 /100 WBC (0.0-0.2); Platelet Count 253 K/mm3 (150-400); RDW Coefficient Variation 17.8 % (11.7-14.2); RDW Standard Deviation 46.4 fL (35.1-46.3); White Blood Cell Count 12.47 K/mm3 (4.00-11.30)
[2024-06-03] MEDS ORDERED: Phenylephrine HCl 100 MCG/ML-NS 10MLSYR (1MG/10ML) IV ONE (12:53)
[2024-06-03 13:17] LABS: Mean Platelet Volume 12.7 fL (9.1-12.4)
[2024-06-03 13:24] LABS: Albumin, Blood 3.1 g/dL (3.4-5.0); Albumin/Globulin Ratio 0.8 (0.8-1.8); Bilirubin, Total 0.9 mg/dL (0.1-1.0); Bun/Creatinine Ratio 17.6 (12.0-20.0); Creatinine, Blood 2.89 mg/dL (0.40-1.00); Globulin, Blood 3.8 g/dL (2.2-4.0); Potassium, Blood 4.1 mmol/L (3.5-5.5); Total Protein, Blood 6.9 g/dL (6.4-8.2)
[2024-06-03] MEDS ORDERED: NS 1,000 ML IV SCH (13:55)
[2024-06-03] MEDS ORDERED: Lidocaine 4% 1 Patch TOP ONE (15:45)
[2024-06-03] MEDS ORDERED: Furosemide 10 MG/ML 4ML Vial IV ONE ×2 (17:35→22:25)
[2024-06-03 17:39] LABS: Source, Urine Foley catheter
[2024-06-03 17:42] LABS: Appearance, Urine Clear (Clear); Bilirubin, Urine Neg (Neg); Blood, Urine 2+ (Neg); Color, Urine Yellow (P-Yellow); Glucose Qualitative, Urine Neg (Neg); Ketones, Urine Neg (Neg); Leukocyte Esterase, Urine 3+ (Neg); Nitrite, Urine Neg (Neg); Protein, Urine 2+ (Neg); Urobilinogen, Urine NORM (Normal)
[2024-06-03 17:54] LABS: Bacteria Mod /hpf; Squamous Epithelial Cells Rare /hpf (Few); Transitional Epithelial Cells Few /hpf (0-Rare); White Blood Cells, Urine 25-50 /hpf (0-5)
[2024-06-03] MEDS ORDERED: Furosemide 10 MG/ML 4ML Vial IV SCH (18:00)
[2024-06-03] MEDS ORDERED: Ondansetron HCl 2 MG / ML 2ML Vial IV PRN (18:00)
[2024-06-03] MEDS ORDERED: Albuterol 2.5 MG/3 ML VIAL INH PRN (18:05)
[2024-06-03] MEDS ORDERED: Acetaminophen 500 MG Tab PO PRN (18:10)
[2024-06-03] MEDS ORDERED: TraMADol HCl 50 MG Tab PO PRN (18:10)
[2024-06-03] MEDS ORDERED: Pantoprazole Sodium 40 MG Injection IV ONE (19:00)
[2024-06-03 19:14] LABS: Base Excess Venous -7.3 mmol/L; Bicarbonate Venous 18.8 mmol/L (24.0-30.0); PCO2 Venous 37.6 mmHg (38-42); pH Blood Venous 7.31 (7.34-7.37)
[2024-06-03] MEDS ORDERED: DILT120 PO (20:48)
[2024-06-03] MEDS ORDERED: SOAANZ20 M2 PO (20:49)
[2024-06-03] MEDS ORDERED: Docusate Sodium/Senna 1 Tab PO SCH (21:00)
[2024-06-03 22:08] LABS: BASOPHILS ABSOLUTE AUTO 0.04 K/mm3 (0.00-0.23); BASOPHILS PERCENT AUTO 0 % (0-2); EOSINOPHILS PERCENT AUTO 0 % (0-6); Hematocrit 27.9 % (33.0-51.0); Hemoglobin 8.9 g/dL (11.5-16.0); IMMATURE GRAN ABSOLUTE AUTO 0.12 K/mm3 (0.00-0.10); IMMATURE GRAN PERCENT AUTO 1 % (0-1); LYMPHOCYTES ABSOLUTE AUTO 0.86 K/mm3 (0.84-5.20); LYMPHOCYTES PERCENT AUTO 5 % (21-46); MONOCYTES ABSOLUTE AUTO 1.11 K/mm3 (0.16-1.47); MONOCYTES PERCENT AUTO 7 % (4-13); Mean Corpuscular HGB 23.4 pg (26.0-34.0); Mean Corpuscular HGB Conc 31.9 g/dL (31.5-36.5); Mean Corpuscular Volume 73 fL (80-100); NEUTROPHILS ABSOLUTE AUTO 13.69 K/mm3 (1.96-9.15); NEUTROPHILS PERCENT AUTO 87 % (41-73); NRBC ABSOLUTE 0.03 K/mm3 (0.00-0.02); NRBC Auto 0.2 /100 WBC (0.0-0.2); Platelet Count 194 K/mm3 (150-400); RDW Coefficient Variation 19.3 % (11.7-14.2); Red Blood Cell Count 3.81 M/mm3 (3.80-5.20); White Blood Cell Count 15.82 K/mm3 (4.00-11.30)
[2024-06-03 23:04] LABS: Base Excess Venous 0.6 mmol/L; Bicarbonate Venous 24.6 mmol/L (24.0-30.0); PCO2 Venous 37.6 mmHg (38-42); pH Blood Venous 7.43 (7.34-7.37)
[2024-06-04] VITALS (61 sets, daily range): BP systolic 53–118; BP diastolic 33–87
[2024-06-04 04:10] LABS: Hematocrit 26.1 % (33.0-51.0); Hemoglobin 8.6 g/dL (11.5-16.0); Mean Corpuscular HGB 23.8 pg (26.0-34.0); Mean Corpuscular Volume 72 fL (80-100); Mean Platelet Volume 12.3 fL (9.1-12.4); Platelet Count 184 K/mm3 (150-400); RDW Coefficient Variation 18.6 % (11.7-14.2); RDW Standard Deviation 48.3 fL (35.1-46.3); Red Blood Cell Count 3.62 M/mm3 (3.80-5.20); White Blood Cell Count 12.87 K/mm3 (4.00-11.30)
[2024-06-04 04:37] LABS: Magnesium, Blood 2.4 mg/dL (1.6-2.4)
[2024-06-04 04:38] LABS: Albumin, Blood 2.8 g/dL (3.4-5.0); Albumin/Globulin Ratio 0.9 (0.8-1.8); Bun/Creatinine Ratio 19.5 (12.0-20.0); Calcium, Blood 8.7 mg/dL (8.5-10.1); Creatinine, Blood 2.98 mg/dL (0.40-1.00); Potassium, Blood 3.5 mmol/L (3.5-5.5); Total Protein, Blood 5.8 g/dL (6.4-8.2)
--- NOTE | 2024-06-04 06:03 | NUR ---
PATIENT TO ICU 4 FROM ER AT APPROX 2030 LAST NIGHT. PATIENT ALERT AND ORIENTED ON ARRIVAL. SP02 98% ON RA, DENIES SOB. HR SR ON ARRIVAL, NOW AFIB 60s. BP STABLE, LEVOPHED TITRATED OFF WHEN PATIENT ARRIVED TO ICU. DENIES CP/PRESSURE. GARRETT PATENT AND DRAINING TO GRAVITY. NO BM THIS SHIFT. REPOSITIONS SELF, ASSISTANCE PRN. CALL LIGHT IN REACH
[2024-06-04] MEDS ORDERED: Pantoprazole Sodium 40 MG Injection IV SCH (09:00)
[2024-06-04] MEDS ORDERED: Atorvastatin 10 MG Tab PO SCH (09:00)
[2024-06-04] MEDS ORDERED: Furosemide 10 MG/ML 4ML Vial IV SCH (09:00)
[2024-06-04] MEDS ORDERED: Lactated Ringer's 1,000 ML IV SCH (09:50)
--- NOTE | 2024-06-04 11:20 | NUR ---
UNABLE TO FLUSH IV IN LEFT UPPER ARM - IV REMOVED, IV INTACT.
--- NOTE | 2024-06-04 11:22 | NUR ---
History, Chart, Medications and Allergies reviewed before start of procedure. Lungs clear T/O to Auscultation. Patient confirms NPO status and agrees with scheduled surgery. Pre-Op teaching done. Pt verbalizes understanding.
[2024-06-04] MEDS ORDERED: propofoL 40 ML IV ONE (11:44)
--- NOTE | 2024-06-04 11:55 | NUR ---
06/04/24 1155 Leelee Del Rio History, Chart, Medications and Allergies reviewed before start of procedure. BITE BLOCK IN PRIOR TO START OF PROCEDURE. DR JEAN PROVIDING ANESTHESIA, SEE RECORDS
[2024-06-04] MEDS ORDERED: Albuterol HFA200 ACT/6.7 GM INH INH PRN (12:50)
[2024-06-04] MEDS ORDERED: Spironolactone 25 MG Tab PO SCH (16:00)
[2024-06-04] MEDS ORDERED: Empagliflozin 10 MG TAB PO SCH ×2 (16:00)
[2024-06-04] MEDS ORDERED: Lisinopril 5 MG Tab PO SCH (16:00)
[2024-06-04] MEDS ORDERED: Metoprolol Succinate 25 MG TABCR PO SCH (16:00)
--- NOTE | 2024-06-04 18:44 | NUR ---
Summary. Pt doing well this shift. EGD completed mid shift by Dr. Lawrence, see chart. Central line removed. Diet advanced. No acute events this shift. Pt alert and oriented, uses call light for needs. See chart for details.
[2024-06-04] MEDS ORDERED: NS 250 ML IV ONE (19:25)
[2024-06-05] VITALS (47 sets, daily range): BP systolic 75–126; BP diastolic 7–105
[2024-06-05 03:38] LABS: BASOPHILS ABSOLUTE AUTO 0.04 K/mm3 (0.00-0.23); BASOPHILS PERCENT AUTO 0 % (0-2); EOSINOPHILS ABSOLUTE AUTO 0.15 K/mm3 (0.00-0.68); EOSINOPHILS PERCENT AUTO 1 % (0-6); Hematocrit 29.2 % (33.0-51.0); Hemoglobin 9.3 g/dL (11.5-16.0); IMMATURE GRAN ABSOLUTE AUTO 0.08 K/mm3 (0.00-0.10); IMMATURE GRAN PERCENT AUTO 1 % (0-1); LYMPHOCYTES ABSOLUTE AUTO 2.09 K/mm3 (0.84-5.20); LYMPHOCYTES PERCENT AUTO 13 % (21-46); MONOCYTES ABSOLUTE AUTO 1.11 K/mm3 (0.16-1.47); MONOCYTES PERCENT AUTO 7 % (4-13); Mean Corpuscular HGB 23.3 pg (26.0-34.0); Mean Corpuscular HGB Conc 31.8 g/dL (31.5-36.5); Mean Corpuscular Volume 73 fL (80-100); NEUTROPHILS ABSOLUTE AUTO 12.07 K/mm3 (1.96-9.15); NEUTROPHILS PERCENT AUTO 78 % (41-73); NRBC ABSOLUTE 0.02 K/mm3 (0.00-0.02); NRBC Auto 0.1 /100 WBC (0.0-0.2); Platelet Count 208 K/mm3 (150-400); RDW Coefficient Variation 19.2 % (11.7-14.2); RDW Standard Deviation 50.4 fL (35.1-46.3); Red Blood Cell Count 3.99 M/mm3 (3.80-5.20); White Blood Cell Count 15.54 K/mm3 (4.00-11.30)
[2024-06-05 04:00] LABS: Albumin, Blood 2.7 g/dL (3.4-5.0); Albumin/Globulin Ratio 0.9 (0.8-1.8); Bilirubin, Total 1.4 mg/dL (0.1-1.0); Bun/Creatinine Ratio 23.6 (12.0-20.0); Calcium, Blood 8.3 mg/dL (8.5-10.1); Creatinine, Blood 1.91 mg/dL (0.40-1.00); Total Protein, Blood 5.7 g/dL (6.4-8.2)
[2024-06-05] MEDS ORDERED: Potassium Chloride 20 MEQ TabCR PO ONE (04:25)
--- NOTE | 2024-06-05 05:49 | NUR ---
SHIFT SUMMARY PATIENT ALERT AND ORIENTED X4. SP02 98% ON RA, DENIES SOB AT REST. LS CLEAR. HR AFIB 80s-90s. BP HYPOTENSIVE AT START OF SHIFT, PER HOSPITALIST GAVE 250 MLS NS BOLUS, NO IMPROVEMENT. PATIENT STARTED ON LOW DOSE LEVOPHED. ATTEMPTING TO TITRATE LEVOPHED OFF THIS AM. GARRETT PATENT AND DRAINING TO GRAVITY.
[2024-06-05] MEDS ORDERED: Potassium Chloride 10 Meq Tablet SA PO ONE (07:45)
[2024-06-05] MEDS ORDERED: dilTIAZem HCL 120 MG CAP.CD PO SCH (09:00)
[2024-06-05] MEDS ORDERED: Cholecalciferol 1000 Unit Tablet (=25MCG) PO SCH (09:00)
[2024-06-05] MEDS ORDERED: Spironolactone 12.5 MG TAB PO SCH ×2 (09:00)
[2024-06-05] MEDS ORDERED: NS 500 ML IV ONE ×2 (09:30→14:30)
[2024-06-05] MEDS ORDERED: Midodrine 5 MG Tab PO ONE (11:30)
[2024-06-05] MEDS ORDERED: Midodrine 5 MG Tab PO SCH ×2 (13:00→18:00)
--- NOTE | 2024-06-05 18:36 | NUR ---
Summary. Pt alert and oriented, hypotensive today. Small fluid boluses given with good effect, midodrine started as well. Up to bedside commode with standby assist. No black/bloody stools this shift. See chart for further details.
--- NOTE | 2024-06-05 21:00 | NUR ---
ASSUMED CARE AT APPROX 1900 PATIENT IS ALERT AND ORIENTED X4. SP02 98% ON RA, DENIES SOB. HR A.FIB 90s, BP STABLE, DENIES CP/PRESSURE. GARRETT PATENT AND DRAINING TO GRAVITY. PATIENT ABLE TO REPOSITION SELF IN BED. CALL LIGHT IN REACH
[2024-06-06] VITALS (42 sets, daily range): BP systolic 90–137; BP diastolic 44–112
[2024-06-06 03:48] LABS: BASOPHILS ABSOLUTE AUTO 0.04 K/mm3 (0.00-0.23); BASOPHILS PERCENT AUTO 0 % (0-2); EOSINOPHILS ABSOLUTE AUTO 0.17 K/mm3 (0.00-0.68); EOSINOPHILS PERCENT AUTO 1 % (0-6); Hematocrit 30.3 % (33.0-51.0); Hemoglobin 9.3 g/dL (11.5-16.0); IMMATURE GRAN ABSOLUTE AUTO 0.08 K/mm3 (0.00-0.10); IMMATURE GRAN PERCENT AUTO 1 % (0-1); LYMPHOCYTES ABSOLUTE AUTO 1.97 K/mm3 (0.84-5.20); LYMPHOCYTES PERCENT AUTO 16 % (21-46); MONOCYTES PERCENT AUTO 8 % (4-13); Mean Corpuscular HGB 23.2 pg (26.0-34.0); Mean Corpuscular HGB Conc 30.7 g/dL (31.5-36.5); Mean Corpuscular Volume 76 fL (80-100); NEUTROPHILS ABSOLUTE AUTO 9.34 K/mm3 (1.96-9.15); NEUTROPHILS PERCENT AUTO 74 % (41-73); Platelet Count 177 K/mm3 (150-400); RDW Coefficient Variation 19.3 % (11.7-14.2); RDW Standard Deviation 52.2 fL (35.1-46.3); Red Blood Cell Count 4.01 M/mm3 (3.80-5.20)
[2024-06-06 07:00] LABS: Bun/Creatinine Ratio 27.2 (12.0-20.0); Calcium, Blood 8.3 mg/dL (8.5-10.1); Creatinine, Blood 1.14 mg/dL (0.40-1.00); Potassium, Blood 3.8 mmol/L (3.5-5.5)
--- NOTE | 2024-06-06 07:10 | NUR ---
SHIFT SUMMARY NO ACUTE CHANGES THIS SHIFT. VSS. GARRETT PATENT AND DRAINING TO GRAVITY. INDEPENDENT WITH REPOSITIONING. CALL LIGHT IN REACH
--- NOTE | 2024-06-06 18:16 | NUR ---
Summary. Pt doing well. Alert and oriented, VS stable. Up to chair for meals, pt went on several walks around unit this shift. Ambulating easily with walker, denies SOB/dizziness/weakness. Huynh out today, pt voiding w/out difficulty. See chart for further details.
[2024-06-07 03:50] LABS: Hematocrit 29.9 % (33.0-51.0); Hemoglobin 9.1 g/dL (11.5-16.0); Mean Corpuscular HGB 23.5 pg (26.0-34.0); Mean Corpuscular HGB Conc 30.4 g/dL (31.5-36.5); Mean Corpuscular Volume 77 fL (80-100); Mean Platelet Volume 12.1 fL (9.1-12.4); Platelet Count 173 K/mm3 (150-400); RDW Coefficient Variation 19.9 % (11.7-14.2); RDW Standard Deviation 54.5 fL (35.1-46.3); Red Blood Cell Count 3.88 M/mm3 (3.80-5.20); White Blood Cell Count 9.76 K/mm3 (4.00-11.30)
[2024-06-07 04:00] VITALS: BP 111/71
[2024-06-07 04:21] LABS: Bun/Creatinine Ratio 24.3 (12.0-20.0); Calcium, Blood 8.4 mg/dL (8.5-10.1); Creatinine, Blood 0.99 mg/dL (0.40-1.00); Potassium, Blood 4.1 mmol/L (3.5-5.5)
--- NOTE | 2024-06-07 05:43 | NUR ---
SHIFT SUMMARY PT HAS TOLERATED SHIFT WELL WITH NO SIGNIFICANT CHANGES OVERNIGHT. PT HAS SLEPT WELL AND ABLE TO VOID AFTER BEING PLACED ON PUREWICK. PT STATES NO COMPLAINTS AT THIS TIME AND IS RESTING IN ROOM. WILL CONTINUE TO MONITOR UNTIL REPORT PASSED TO DAY SHIFT TEAM.
[2024-06-07] MEDS ORDERED: Midodrine 5 MG Tab PO PRN (07:35)
[2024-06-07 08:00] VITALS: BP 125/74
--- NOTE | 2024-06-07 09:48 | NUR ---
THIS RN ASSUMED CARE OF PT AT 0700. PT IS ALERT AND ORIENTED X4, CALLS APPROPRIATELY. HEART RATE IS IN THE 100s A-FIB, PT DENIES CHEST PAIN UPON ASSESSMENT, BP STABLE AT 125/74. PT IS ON ROOM AIR SATTING >95%, CLEAR/DIMINISHED, PT DENIES SHORTNESS OF BREATH. PT ABLE TO VOID PER TOILET, WITH X1 ASSIST. NO OTHER INTERVENTIONS AT THIS TIME. PLAN OF CARE CONTINUED.
[2024-06-07 12:00] VITALS: BP 125/76
[2024-06-07] MEDS ORDERED: JARDIANCE10 MG PO (12:21)
[2024-06-07] MEDS ORDERED: METO25ER PO (12:22)
[2024-06-07] MEDS ORDERED: MIDO5 PO (12:23)
[2024-06-07] MEDS ORDERED: PANT40 PO (12:24)
[2024-06-07] MEDS ORDERED: TORSE20 PO (12:29)
--- NOTE | 2024-06-07 13:33 | NUR ---
PT IS BEING DISCHARGED HOME. PT IS ALERT AND ORIENTED AND READY TO GO HOME. PT NEW MEDICATIONS HAVE BEEN FAXED TO HOME PHARMACY, THIS RN CALLED AND CONFIRMED PHARMACY RECEIVED FAX AND THEY ARE WORKING ON GETTING PT MEDS READY NOW. NO OTHER INTERVENTIONS AT THIS TIME. PT WILL FOLLOW UP WITH PCP WITHIN 1 WEEK. NO OTHER INTERVENTIONS AT THIS TIME. PLAN OF CARE CONTINUED.
== END 2024-06-07 13:48 | disposition home health service (06) | DRG 280 ==
LOC: ER 11:51 → ICUE 18:53
PROVIDERS: Family Medicine; Internal Medicine; Nurse Practitioner Acute Care; Physician Assistant; Student in an Organized Health Care Education/Training Program; ADMIT Internal Medicine
PROC: 02HV33Z Insertion of Infusion Device into Superior Vena Cava, Percutaneous Approach (ICD-10-PCS; principal; 2024-06-03)
PROC: B548ZZA Ultrasonography of Superior Vena Cava, Guidance (ICD-10-PCS; 2024-06-03)
PROC: 30233N1 Transfusion of Nonautologous Red Blood Cells into Peripheral Vein, Percutaneous Approach (ICD-10-PCS; 2024-06-03)
PROC: 0DJ08ZZ Inspection of Upper Intestinal Tract, Via Natural or Artificial Opening Endoscopic (ICD-10-PCS; 2024-06-03)
DX: I13.0 Hypertensive heart and chronic kidney disease with heart failure and stage 1 through stage 4 chronic kidney disease, or unspecified chronic kidney disease (principal); I50.33 Acute on chronic diastolic (congestive) heart failure; I21.A1 Myocardial infarction type 2; R57.1 Hypovolemic shock; E87.1 Hypo-osmolality and hyponatremia; N17.9 Acute kidney failure, unspecified; D62 Acute posthemorrhagic anemia; K92.2 Gastrointestinal hemorrhage, unspecified; R29.6 Repeated falls; I48.0 Paroxysmal atrial fibrillation; M81.0 Age-related osteoporosis without current pathological fracture; E78.5 Hyperlipidemia, unspecified; F12.10 Cannabis abuse, uncomplicated; N18.30 Chronic kidney disease, stage 3 unspecified; R74.01 Elevation of levels of liver transaminase levels; R82.71 Bacteriuria; I08.0 Rheumatic disorders of both mitral and aortic valves; Z79.01 Long term (current) use of anticoagulants; Z91.040 Latex allergy status; Z91.048 Other nonmedicinal substance allergy status; Z88.8 Allergy status to other drugs, medicaments and biological substances; Z79.51 Long term (current) use of inhaled steroids; Z79.899 Other long term (current) drug therapy; Z87.442 Personal history of urinary calculi; Z98.890 Other specified postprocedural states; Z90.89 Acquired absence of other organs; Z90.710 Acquired absence of both cervix and uterus; Z95.3 Presence of xenogenic heart valve; Z87.891 Personal history of nicotine dependence; Z98.42 Cataract extraction status, left eye; Z85.828 Personal history of other malignant neoplasm of skin; Z98.41 Cataract extraction status, right eye; Z87.59 Personal history of other complications of pregnancy, childbirth and the puerperium
CPT/HCPCS: 36415; 36430; 36556; 51702; 70450; 71045; 71046; 74176; 80048; 80053; 81001; 82272; 82570; 82803; 83605; 83690; 83735; 83880; 84484; 84540; 85025; 85027; 86850; 86900; 86901; 86923; 87077; 87086; 87186; 93005; 93010; 93306; 94760; 94762; 96365; 96366; 96375; 97161; 99291-25; 99292; A9270; C1751; J1940; J2371; J2470; J2704; J7030; J7040; J7050; J7060; J7120; P9016

== ENCOUNTER 2024-06-11 12:16 | Inpatient (IN) | payer MEDICARE, OTHER ==
[2024-06-11] VITALS (11 sets, daily range): BP systolic 73–133; BP diastolic 48–108
[~2024-06-11] VITALS: Ht 162.6 cm; Wt 59.8 kg
[~2024-06-11 12:16] MED LIST changes: +DILT120 PO; +JARDIANCE10 MG PO; +METO25ER PO; +MIDO5 PO; +PANT40 PO; +SOAANZ20 M2 PO; +TORSE20 PO
[2024-06-11 12:39] LABS: Base Excess Venous -12.2 mmol/L; Bicarbonate Venous 15.1 mmol/L (24.0-30.0); PCO2 Venous 40.2 mmHg (38-42)
[2024-06-11 13:32] LABS: Hematocrit 34.9 % (33.0-51.0); Hemoglobin 10.4 g/dL (11.5-16.0); Mean Corpuscular HGB 23.7 pg (26.0-34.0); Mean Corpuscular HGB Conc 29.8 g/dL (31.5-36.5); Mean Corpuscular Volume 80 fL (80-100); Platelet Count 346 K/mm3 (150-400); RDW Standard Deviation 62.4 fL (35.1-46.3); Red Blood Cell Count 4.38 M/mm3 (3.80-5.20); White Blood Cell Count 26.25 K/mm3 (4.00-11.30)
[2024-06-11 13:36] LABS: Mean Platelet Volume 13.4 fL (9.1-12.4)
[2024-06-11] MEDS ORDERED: Vancomycin HCL 2,000 MG in NS 520 ML IV ONE (13:55)
[2024-06-11] MEDS ORDERED: Acetaminophen 500 MG Tab PO ONE (13:55)
[2024-06-11] MEDS ORDERED: Piperacillin/Tazobactam Sod 3.375 GM in NS 100 ML IV ONE (13:55)
[2024-06-11] MEDS ORDERED: NS 1,000 ML IV SCH (14:00)
[2024-06-11 14:32] LABS: BAND PERCENT MAN 9 % (0-8); BASOPHILS PERCENT MAN 0 % (0-2); EOSINOPHILS PERCENT MAN 0 % (0-6); LYMPHOCYTES ABSOLUTE MAN 1.31 K/mm3 (0.84-5.20); LYMPHOCYTES PERCENT MAN 5 % (21-46); MONOCYTES ABSOLUTE MAN 1.05 K/mm3 (0.16-1.47); MONOCYTES PERCENT MAN 4 % (4-13); NEUTROPHILS ABSOLUTE MAN 23.88 K/mm3 (1.96-9.15); SEG NEUTROPHILS PERCENT MAN 82 % (41-73); TOTAL CELLS COUNTED 100
[2024-06-11] MEDS ORDERED: Aspirin 325 MG Tab PO ONE ×2 (14:50→17:40)
[2024-06-11 15:02] LABS: Influenza A, PCR NEGATIVE (NEGATIVE); Influenza B, PCR NEGATIVE (NEGATIVE); Resp Syncytial Virus, PCR NEGATIVE (NEGATIVE); SARS-Cov-2 (COVID-19) PCR, MMC NEGATIVE (NEGATIVE)
[2024-06-11 15:13] LABS: Magnesium, Blood 1.9 mg/dL (1.6-2.4)
[2024-06-11 15:15] LABS: Albumin, Blood 2.6 g/dL (3.4-5.0); Albumin/Globulin Ratio 0.7 (0.8-1.8); Bun/Creatinine Ratio 15.5 (12.0-20.0); Creatinine, Blood 1.94 mg/dL (0.40-1.00); Globulin, Blood 3.8 g/dL (2.2-4.0); Phosphorus, Blood 3.2 mg/dL (2.5-4.9); Potassium, Blood 3.9 mmol/L (3.5-5.5); Total Protein, Blood 6.4 g/dL (6.4-8.2)
[2024-06-11] MEDS ORDERED: FLU VACC TS2024-25(6MOS UP)/PF 45 MCG/0.5 ML SYRINGE IM SCH (17:30)
[2024-06-11] MEDS ORDERED: Meropenem 1,000 MG in NS 100 ML IV SCH (18:00)
[2024-06-11] MEDS ORDERED: Glycopyrrolate 0.2 MG/ML 5ML VIAL IV ONE (18:02)
[2024-06-11] MEDS ORDERED: Phenylephrine HCl 40 MCG/ML-NS 10MLSYR (0.4MG/ML) IV ONE (18:02)
[2024-06-11 19:17] LABS: Anti-Xa UFH, PHA Monitoring <0.10 IU/mL; International Normalized Ratio 1.26; Prothrombin Time Results 13.3 Sec (9.7-11.5)
[2024-06-11] MEDS ORDERED: Dose Adjust by Pharmacy XX STA (19:23)
[2024-06-11] MEDS ORDERED: Heparin Sodium,Porcine/0.5 NS 500 ML IV SCH (19:25)
--- NOTE | 2024-06-11 21:23 | NUR ---
ADMISSION NOTE PT ARRIVED FROM ED ON BED AT 2105, IN NO APPARENT DISTRESS. ALERT AND ORIENTED. SINUS TACH 118 AND SOFT BP 86/53 (62) ON 2 OF LEVO. LEVO INCREASD TO 4. PT ON 15 UNITS/KG/HR OF HEPARIN. PT SATURATION 98% ON RA. NO COUGH. NO CHEST PAIN /PRESSURE. NO SOB THOUGH PT ADMITS TO SOB WITH ANY EXERTION. A FEBRILE 98.2. NO N/V, AB PAIN. PUREWICK IN PLACE TO SUCTION. PT HAS CALL LIGHT. RADIOLOGY IN ROOM I LEFT.
[2024-06-12] VITALS (60 sets, daily range): BP systolic 62–149; BP diastolic 34–109
[2024-06-12 02:49] LABS: Hematocrit 31.7 % (33.0-51.0); Hemoglobin 9.6 g/dL (11.5-16.0); Mean Corpuscular HGB Conc 30.3 g/dL (31.5-36.5); Mean Corpuscular Volume 76 fL (80-100); Mean Platelet Volume 11.7 fL (9.1-12.4); Platelet Count 288 K/mm3 (150-400); RDW Coefficient Variation 21.3 % (11.7-14.2); RDW Standard Deviation 57.9 fL (35.1-46.3); Red Blood Cell Count 4.17 M/mm3 (3.80-5.20); White Blood Cell Count 19.71 K/mm3 (4.00-11.30)
[2024-06-12 03:06] LABS: Anion Gap 12 mmol/L (3-11); Blood Urea Nitrogen 32 mg/dL (8-24); Bun/Creatinine Ratio 14.7 (12.0-20.0); CO2, Blood 23 mmol/L (21-32); Calcium, Blood 8.1 mg/dL (8.5-10.1); Chloride, Blood 101 mmol/L (98-108); Creatinine, Blood 2.18 mg/dL (0.40-1.00); Glomerular Filtration Rate 23 (60-); Glucose, Blood 133 mg/dL (70-99); Potassium, Blood 3.8 mmol/L (3.5-5.5); Sodium, Blood 132 mmol/L (136-145); Vancomycin, Random 30.1 ug/mL
[2024-06-12] MEDS ORDERED: Dose Adjust by Pharmacy XX STA ×3 (03:18→23:44)
[2024-06-12] MEDS ORDERED: Heparin Sodium 5000 Units/ML 1ML MDV IV ONE ×2 (03:20→10:20)
[2024-06-12] MEDS ORDERED: Mag Sulfate 1 GM/D5% 100ML 100 ML IV ONE (06:45)
[2024-06-12] MEDS ORDERED: Potassium Chloride 10 Meq Tablet SA PO ONE (06:45)
--- NOTE | 2024-06-12 07:00 | NUR ---
ASSUME CARE: I have assumed care of this patient. At this time she is awake, alert, and interactive with nursing staff. IV heprin infusing at 17 units and levophed at 2. Pt is satting well on room air. Safety check performed during bedside shift report.
--- NOTE | 2024-06-12 07:46 | NUR ---
SHIFT SUMMARY PT LYING IN BED TRYING TO SLEEP. ALERT AND ORIENTED BEDSIDE SHIFT REPORT GIVEN TO ONCOMING DAY RN. PT TEMP GRADUALLY INCREASED THROUGHOUT SHIFT, FINISHING AT 99.7F AT END OF SHIFT. HR AFIB. RATE INCREASED TOWARDS END OF SHIFT FROM 100-130 TO 115-140. HEPARIN INFUSING AT 17 UNITS/KG/HR. BP STABLE TO SOFT ON 2-4 MCG/MIN OF LEVO. AT END OF SHIFT, RATE WAS 2MCG/MIN WITH MAP'S ABOVE 65. NO CHEST PAIN/PRESSURE, BUT DEFINITE DYSPNEA ON EXERTION. SATURATIONS WERE GREAT ALL NIGHT EVEN DURING EXERTIONAL PERIODS, BUT THE SENSATION OF BREATHING DIFFICULTY INCREASED. OCCASIONAL NON-PRODUCTIVE DRY COUGH. 1 BM DURING SHIFT. NO N/V, AB PAIN. PUREWICK PUT OUT 300 IN 10 HOURS AN DTHE BUN/CREATINE BOTH INCREASED WITH MORNING LABS. LOW NORMAL POTASSIUM AND MAG WERE ADDRESSED WITH ORDERED KCL PO 20MEQ AND 1 GRAM MAG SULFATE IV. PT HAS CALL LIGHT NEARBY AND IS ENERGIZED BY A POSITIVE ATTITUDE, DESPITE A SECOND ADMISSION IN 10 DAYS.
[2024-06-12] MEDS ORDERED: NS 250 ML IV PRN (08:40)
[2024-06-12] MEDS ORDERED: Digoxin 0.125 MG in NS 4.5 ML IV SCH (09:00)
[2024-06-12] MEDS ORDERED: NS 500 ML IV SCH (09:35)
--- NOTE | 2024-06-12 11:30 | NUR ---
PROVIDER UPDATE: Pt reports history of adverse reaction when taking oral amiodoron. Benny STEVENS and Brittney notified.
--- NOTE | 2024-06-12 12:50 | NUR ---
REPORT: Given to JUAN Slater.
--- NOTE | 2024-06-12 13:39 | NUR ---
RECEIVED CARE OF DAVID AROUND 1300, SHE IS RESTLESS, UNCOMFORTABLE BUT IS UNABLE TO PINPOINT WHAT IT IS. SHE DENIES NEED FOR MEDICATION OR HAVING PAIN. HEAR RATE VARYING FROM 140-160, BP STABLE, HEPARIN GTT INFUSING @ 19U/KG.
--- NOTE | 2024-06-12 15:14 | NUR ---
DAVID WAS INCONTINENT OF STOOL AND URINE, SHE CONTINUES TO FEEL UNCOMFORTABLE. SHE WAS TOLD ABOUT HER POSITIVE BLOOD CULTURES AND ELEVATED TEMP. CALL TO DR. OCAMPO ABOUT HER ELEVATED TEMP. AWAIT CALL BACK. PT'S FLUID BOLUS COMPLETE. HEPARIN CONTINUES TO INFUSE.
[2024-06-12] MEDS ORDERED: Acetaminophen 325 MG TABLET PO PRN (15:35)
--- NOTE | 2024-06-12 18:20 | NUR ---
DAVID HAS IMPROVED. SHE IS LESS RESTLESS, MORE CLEAR IN HER THINKING. TEMP HAS COME DOWN, EATING HER DINNER, TAKING IN FLUIDS. HEART RATE REMAINS ELEVATED, BASELINE 130'S, HITS 160'S OFTEN. BP STABLE. HEPARIN DRIP AT 19U/KG PER HOUR.
[2024-06-12] MEDS ORDERED: Meropenem 500 MG in NS 100 ML IV SCH (21:00)
[2024-06-12] MEDS ORDERED: Esmolol HCL 2500mg/250ml Prema 250 ML IV SCH (21:45)
--- NOTE | 2024-06-12 23:52 | NUR ---
ASSUMPTION OF CARE CARE OF PT ASSUMED AT 1900 FOLLOWING REPORT FROM DAY RN. PT SITTING UP IN BED, IN MILD TO MODERATE DISTRESS. PT FEELS SOB. ALERT AND ORIENTED TO ALL. KHANG. SINUS TACH WITH PAC'S VS A FIB VS IRREGULAR RHYTHM CONTINUES WITH RATE 115-145 AVERAGING 138. AMIODARONE WAS ORDERED BUT PT RECALLED PREVIOUS ADVERSE REACTION WHEN TAKING IT PO. TIGHTENER WILL BE CONSULTED ABOUT OTHER AVENUES OF DECREASING THE HR. BP STABLE WITH LEVO OFF. SATURATION >95% ON RA. NO CHEST PAIN/PRESSURE. NO AB PAIN, N/V. HEPARIN INFUSING AT 19 UNITS/KG/HR. PUREWICK IN PLACE TO SUCTION. WILL CONTINUE WITH PLAN OF CARE. PT HAS CALL LIGHT NEARBY.
--- NOTE | 2024-06-12 23:56 | NUR ---
UPDATE- CALL TO AGRICULTURE WORKER DR oLpez CALLED AT 2200 ABOUT HR. ESMOLOL AT LOWEST POSSIBLE DOSE ORDERED AND STARTED AT 25 MCG/KG/MIN. BP WILL BE MONITORED. AT TIME OF WRITING THIS NOTE, BP HAS HELD. OF NOTE, BP CUFF WAS MOVED TO LEG DUE TO PAIN AND CUFF SLIPPING OFF OF LEFT FA. THE DIFFERENCE IN MEASURED VALUES SEEMS TO BE AROUND 10 FAR MAP IS CONCERNED. IF NEEDED, LEVO WILL BE RESTARTED TO MAINTAIN MAP OF 65. HR IS DOWN TO 95-110. PT STILL SOB.
[2024-06-13] VITALS (71 sets, daily range): BP systolic 67–119; BP diastolic 33–96
[2024-06-13] MEDS ORDERED: Melatonin 5 MG Tablet PO SCH (02:35)
[2024-06-13 02:55] LABS: Source, Urine Clean Catch
[2024-06-13 02:57] LABS: Appearance, Urine Hazy (Clear); Bilirubin, Urine Neg (Neg); Blood, Urine 2+ (Neg); Color, Urine Yellow (P-Yellow); Glucose Qualitative, Urine 4+ (Neg); Ketones, Urine Neg (Neg); Leukocyte Esterase, Urine 2+ (Neg); Nitrite, Urine Neg (Neg); Protein, Urine 3+ (Neg); Urobilinogen, Urine NORM (Normal)
[2024-06-13 03:05] LABS: Amorphous Light (0-Heavy); Bacteria Mod /hpf; Hyaline Casts 0-2 /lpf (0-2); Red Blood Cells, Urine 0-2 /hpf (0-2); Squamous Epithelial Cells Few /hpf (Few); Transitional Epithelial Cells Rare /hpf (0-Rare)
[2024-06-13 05:21] LABS: Hematocrit 26.5 % (33.0-51.0); Hemoglobin 8.1 g/dL (11.5-16.0); Mean Corpuscular HGB 22.9 pg (26.0-34.0); Mean Corpuscular HGB Conc 30.6 g/dL (31.5-36.5); Mean Corpuscular Volume 75 fL (80-100); Platelet Count 276 K/mm3 (150-400); RDW Coefficient Variation 21.2 % (11.7-14.2); RDW Standard Deviation 57.5 fL (35.1-46.3); Red Blood Cell Count 3.53 M/mm3 (3.80-5.20); White Blood Cell Count 11.57 K/mm3 (4.00-11.30)
[2024-06-13 05:22] LABS: Mean Platelet Volume 12.5 fL (9.1-12.4)
[2024-06-13 05:39] LABS: Anion Gap 12 mmol/L (3-11); Blood Urea Nitrogen 40 mg/dL (8-24); Bun/Creatinine Ratio 19.9 (12.0-20.0); CO2, Blood 22 mmol/L (21-32); Calcium, Blood 8.1 mg/dL (8.5-10.1); Chloride, Blood 102 mmol/L (98-108); Creatinine, Blood 2.01 mg/dL (0.40-1.00); Glomerular Filtration Rate 26 (60-); Glucose, Blood 158 mg/dL (70-99); Sodium, Blood 132 mmol/L (136-145); Vancomycin, Random 17.1 ug/mL
--- NOTE | 2024-06-13 08:16 | NUR ---
SHIFT SUMMARY PT LYING IN BED TRYING TO SLEEP. ALERT AND ORIENTED BEDSIDE SHIFT REPORT GIVEN TO ONCOMING DAY RN. PT AFEBRILE THROUGHOUT SHIFT. HR SINUS TACH WITH PAC'S VS A FIB WAS AT HIGH RATE AT START OF SHIFT (120-150); CARDIOLOGY CALLED AND ORDER FOR LOW DOSE ESMOLOL INFUSION/TITRATION GOAL PLACED. STARTED AND ENDED AT 25 MCG/KG/MIN, ESMOLOL EFFECTIVELY REDUCED HEART RATE, ALTHOUGH LEVOPHED WAS UTILIZED TO MAINTAIN SUFFICIENT MAP. SHIFT ENDED WITH LEVO AT 3MCG/MIN. THE DECREASED HR ALSO DECREASED THE SOB, WHICH FOR FIRST SEVERAL HOURS OF SHIFT, HAD THE PT UNCOMFORTABLE AND IN MODERATE DISTRESS. HEPARIN INFUSING AT 19 UNITS/KG/HR. NO CHEST PAIN/PRESSURE, AB PAIN, N/V, DIZZINESS DURING SHIFT. OCCASIONAL NON-PRODUCTIVE DRY COUGH. 4 BM DURING SHIFT- CHARACTER OF LAST BM WAS JELLY LIKE AND AN ORDER WAS PLACED FOR AN OCCULT QUAIC. CHAR PUT OUT 80ML FOR ME BUT THERE WAS ONE BIG INCONTINENT VOID, AND UPON SEARCHING, IT APPEARS ONE OR TWO INCONTINENT, UNMEASAURED VOIDS WERE NOT CHARTED DURING DAY SHIFT, SO URINE OUTPUT GREATER THAN NUMBERS MAY INDICATE THOUGH SHOULD STILL BE CLOSELY MONITORED. PT FINISHED THE SHIFT MUCH MORE COMFORTABLE THAN SHE STARTED.
--- NOTE | 2024-06-13 08:30 | NUR ---
[place] of care: Alert, oriented, resting in bed with no complaints. In controlled Afib in the 90s. Blood pressures stable with MAPs above 65. Esmolol at 25 mcgs/kg/min & norepi at 3 mcgs/min. On room air with stable oxygen saturations. NS @ 125 cc/hr. Purewick in place with clear, yellow urine. Taking PO. PIV & powerglide in place for access. Will continue to monitor.
[2024-06-13] MEDS ORDERED: NS 1,000 ML IV SCH (09:00)
[2024-06-13] MEDS ORDERED: Meropenem 1,000 MG in NS 100 ML IV SCH (09:00)
[2024-06-13] MEDS ORDERED: Apixaban 5 MG Tab PO SCH (12:00)
[2024-06-13 12:17] LABS: Hematocrit 27.2 % (33.0-51.0); Hemoglobin 8.2 g/dL (11.5-16.0)
[2024-06-13 12:58] LABS: Stool Occult Blood Guaiac 1 Pos (Neg)
[2024-06-13] MEDS ORDERED: Albuterol HFA200 ACT/6.7 GM INH INH PRN (15:05)
[2024-06-13] MEDS ORDERED: Pantoprazole Sodium 40 MG Tab PO SCH (16:30)
--- NOTE | 2024-06-13 18:27 | NUR ---
End of shift summary: Neuro intact all day, no complaints of pain. In controlled Afib on esmolol gtt which remains at 25 mcgs/kg/min & norepi gtt at 3 mcgs/min. Room air. Minimal urine output & very dark/concentrated. Purewick in place. BM x1. PIV & powerglide in place. NS infusing at 125 cc/hr. Encouraged PO intake & fluids.
--- NOTE | 2024-06-13 19:48 | NUR ---
ASSUME CARE ASSUMED CARE OF PT AT 1900 , PT ALERT AND ORIENTED X4 SITTING UP IN BED ON BEDPAN, FOLLOWS COMMANDS, ABLE TO MAKE NEEDS KNOWN, NO RESULTS FROM BEDPAN, GAS ONLY, PUREWICK REPLACED AFTER PERICARE DONE AND NEW BEDPAD AND ATTENDS IN PLACE, PT ASSISTED WITH REPOSITIONING IN BED FOR COMFORT IN HIGH FOWLERS POSITION WITH HOB UP 90 DEGREES, NOTED IRREGULAR HR AFIB/SA WITH OCC PACs RATE OF 90-100s, BP MAP >65 ON LEVOPHED AT 3 MCG/MIN AND ESMOLOL AT 25 MCG/KG/MIN, DENIES C/O PAIN OR SOB ON RA WITH SPO2 >90%, PIV TO RIGHT FOREARM PATENT AND POWERGLIDE TO GI PATENT, SCD ON BLE, NOTED BRUISING TO BUE IN VARIOUS STAGES OF HEALING, BLE WITH +1 EDEMA, SIDE RAILS UP X2 CALL LIGHT IN REACH
[2024-06-13] MEDS ORDERED: Atorvastatin 10 MG Tab PO SCH (21:00)
[2024-06-13] MEDS ORDERED: Lactobacil 2-S.Thermo-Bifido 1 1 Cap PO SCH (21:00)
[2024-06-13] MEDS ORDERED: CefTRIAXone Sodium 1,000 MG in NS 100 ML IV SCH (21:00)
[2024-06-14] VITALS (79 sets, daily range): BP systolic 75–129; BP diastolic 45–106
--- NOTE | 2024-06-14 01:27 | NUR ---
UPDATE NOTED PT WITH DRY OCCASSIONAL COUGH , SPOKE WITH MD WITH NEW ORDERS RECEIVED FOR TESSALON PO PRN COUGH TID
[2024-06-14] MEDS ORDERED: Benzonatate 100 MG Cap PO PRN (01:30)
[2024-06-14 03:46] LABS: Hemoglobin 8.3 g/dL (11.5-16.0); Mean Corpuscular HGB Conc 30.7 g/dL (31.5-36.5); Mean Corpuscular Volume 75 fL (80-100); NRBC ABSOLUTE 0.07 K/mm3 (0.00-0.02); NRBC Auto 0.5 /100 WBC (0.0-0.2); Platelet Count 310 K/mm3 (150-400); RDW Coefficient Variation 20.7 % (11.7-14.2); RDW Standard Deviation 55.9 fL (35.1-46.3); Red Blood Cell Count 3.61 M/mm3 (3.80-5.20); White Blood Cell Count 13.94 K/mm3 (4.00-11.30)
[2024-06-14 03:47] LABS: Mean Platelet Volume 12.2 fL (9.1-12.4)
[2024-06-14 04:02] LABS: Bun/Creatinine Ratio 25.2 (12.0-20.0); Creatinine, Blood 1.59 mg/dL (0.40-1.00); Potassium, Blood 3.7 mmol/L (3.5-5.5)
[2024-06-14] MEDS ORDERED: Potassium Chloride 20 MEQ TabCR PO ONE (04:40)
--- NOTE | 2024-06-14 06:16 | NUR ---
UPDATE/SHIFT SUMMARY PT REMAINS ALERT AND ORIENTED X4, DENIES C/O PAIN OR SOB, HR REMAINS AFIB/SA WITH PACs AND PVCs, NOTED 16 BEAT RUN OF VTACH AT 0546, PT ASYMPTOMATIC AND CONVERTED WITHOUT INTERVENTION, MD AWARE, POTASSIUM REPLACEMENT GIVEN PO FOR POTASSIUM 3.8.NEW ORDER RECEIVED TO CHECK MAG LEVEL ALSO, CONTINUES TO HAVE LOW URINE OUTPUT, PUREWICK IN PLACE WITH NOTED MAXIMINO/CONCENTRATED URINE 300 ML AND INCONTINENT X2 THIS SHIFT, PO FLUIDS ENCOURAGED WITH NS INFUSING AT 125 ML/HR, ESMOLOL TITRATED OFF AT 0225 DUE TO HR 50s AND RESTARTED AT 0345 AT 10 MCG/KG/MIN DUE TO HR >110s, MD AWARE OF LOW RATE OF ESMOLOL GTT, LEVOPHED INFUSING AT 4 MCG/MIN TO KEEP MAP >65, REMAINS ON ROOM AIR WITH SPO2>90%, SIDE RAILS UP X2 CALL LIGHT IN REACH
[2024-06-14 06:33] LABS: Magnesium, Blood 2.2 mg/dL (1.6-2.4)
[2024-06-14] MEDS ORDERED: Empagliflozin 10 MG TAB PO SCH (09:00)
[2024-06-14] MEDS ORDERED: Cholecalciferol 1000 Unit Tablet (=25MCG) PO SCH (09:00)
[2024-06-14] MEDS ORDERED: Metoprolol Tartrate 25 MG Tab PO SCH (13:50)
--- NOTE | 2024-06-14 13:50 | NUR ---
TACHYCARDIA REVIEWED RECENT TRENDING VITAL SIGNS WITH DR STEVENS. AFIB HR 100-120S. VERBAL ORDER RECIEVED VIA TELEPHONE FOR LOPRESSOR 12.5MG BID AND IF HR SUSTAINING 130-140S OK TO RESTART ESMOLOL AND NOTIFY HIM FOR A PLAN MOVING FORWARD. SBP REMAINS 100S-110S AND MAP 80S AT THIS TIME.
--- NOTE | 2024-06-14 17:43 | NUR ---
SHIFT SUMMARY NEURO: PATIENT ALERT AND ORIENTED X4. ABLE TO MAKE HER NEEDS KNOWN AND CALLS APPROPRIATELY. CARDIAC:ESMOLOL AND LEVO PLACED ON SB THIS AM PT HR 70-80S. SBP MAINTAINING 90-110S. MAP REMAINED ABOVE 65. RESTARTED PO LOPRESSOR 12.5MG. PT RESPONSIVE TO DOSE. SBP 110S, MAP 70S, HR 70-90S. AFIB TO ATRIAL ARRYTHMIA/WANDERING ATRIAL PACEMAKER/MULTI FOCAL ATRIAL TACHYCARDIA. +MURMUR, S1, S2. PT HAD AN 11 BEAT RUN OF VT. PT DENIED ANY SYMPTOMS. SHE HAS DENIED ANY CHEST PAIN TODAY. SHE HAS ORTHOPNEA AND DYSPNEA WITH ANY EXERTION. +COUGH DRY. LUNGS: CLEAR BUT DIM IN BASES. +DEPENDENT EDEMA R>L, +1. GI: ABDOMEN IS SOFT/NON TENDER, HYPERACTIVE BOWEL TONES LARGE SOFT STOOL TODAY, DARK BROWN LG. UP TO THE BATHROOM SBA FWW, MIN ASSIST-MAINLY SET UP. : GOOD UOP TODAY, URINE LIGHT YELLOW. DID NOT USE PURE WICK TODAY, PT UP TO COMMODE. FAMILY INTO VISIT THIS MORNING, UPDATES PROVIDED.
--- NOTE | 2024-06-14 19:58 | NUR ---
ASSUMPTION OF CARE: ASSUMED CARE OF PT AT 1900. PT ALERT AND ORIENTED, FOLLOWS DIRECTION AND MAKES NEEDS KNOWN. ON RA WITH SPO2 MID TO HIGH 90'S. DENIES SOB AT REST. PRESIDENT + PUBLISHER IN PLACE, AFIB WITH HR 80-100'S. SBP 90-100'S. MAP >65. DENIES CP/PRESSURE. VOIDING INTO COMMODE, YELLOW URINE. TOLERATING PO INTAKE WITH NO C/O N/V. POWERGLIDE TO GI PATENT AND SALINE LOCKED. NO BM YET. BED LOW AND LOCKED, CALL LIGHT IN REACH.
[2024-06-15] VITALS (17 sets, daily range): BP systolic 90–138; BP diastolic 52–94
[2024-06-15 03:40] LABS: Hematocrit 26.2 % (33.0-51.0); Mean Corpuscular HGB 22.9 pg (26.0-34.0); Mean Corpuscular HGB Conc 30.5 g/dL (31.5-36.5); Mean Corpuscular Volume 75 fL (80-100); Mean Platelet Volume 12.1 fL (9.1-12.4); NRBC ABSOLUTE 0.07 K/mm3 (0.00-0.02); NRBC Auto 0.6 /100 WBC (0.0-0.2); Platelet Count 287 K/mm3 (150-400); RDW Coefficient Variation 20.6 % (11.7-14.2); RDW Standard Deviation 55.2 fL (35.1-46.3); Red Blood Cell Count 3.49 M/mm3 (3.80-5.20)
[2024-06-15 03:52] LABS: Bun/Creatinine Ratio 29.5 (12.0-20.0); Calcium, Blood 8.4 mg/dL (8.5-10.1); Creatinine, Blood 1.22 mg/dL (0.40-1.00); Potassium, Blood 3.9 mmol/L (3.5-5.5)
--- NOTE | 2024-06-15 05:32 | NUR ---
SHIFT SUMMARY: NO ACUTE CHANGES OVERNIGHT. REMAINS ALERT AND ORIENTED, ABLE TO REST OFF AND ON T/O THE SHIFT. REMAINS ON RA, NO C/O SOB. SPO2 MAINTAINING >94%. REMAINS IN AFIB WITH HR 70-90'S. SBP SOFT AT TIMES, 80-120. DENIES CP/PRESSURE T/O THE SHIFT. DENIES PAIN OVERALL. TOLERATING PO INTAKE. ABLE TO TRANSFER TO THE [facility] [place] [place] WITH MINIMAL ASSIST. VOIDING YELLOW URINE. ABLE TO HAVE A BM THIS SHIFT. POWERGLIDE TO GI REMAINS PATENT AND SALINE LOCKED. BED LOW AND LOCKED, USING CALL LIGHT APPROPRIATELY.
--- NOTE | 2024-06-15 08:00 | NUR ---
ASSUMPTION OF CARE: PT IS AWAKE IN THE BED. PULSE IN 80-90'S AFIB. PT MAEW. PT HAD PUREWICK IN PLACE WHILE IN BED. PT HAS POWERGLIDE TO LEFT UPPER ARM, SALINE LOCKED. PLAN TO HAVE PT OUT OF BED TODAY MONITORING RHYTHM CLOSELY.
--- NOTE | 2024-06-15 16:39 | NUR ---
progress note Nicole has been productive enough to get out of bed and sit in the chair today for about 5 hrs. She has been up to [facility] 5 times with one stool and other voides of clear yellow urine out. She does get short of breath with any exertion. She is also either using the walker or using contact guide from bed to C to move about. She stated she uses a cane at home currently. She remains on room air oxygenation at 97%. She also remains in afib rate 70-90's not ectopy beats or v-tach. systolic bp remains 98-110 and map remains around 70-90. Niece came in to see her today and encourage her to eat some food she may like.
--- NOTE | 2024-06-15 18:06 | NUR ---
END OF SHIFT NOTE PATIENT HAS BEEN ABLE TO BE MORE ACTIVE TODAY HOWEVER SHE DOES GET SHORT OF BREATH WITH ANY ACTIVITY. SHE USES HER BEDSIDE INHALER WHEN SHE GETS A COUGHING FIT. HER OXYGENATION NEVER DROPS BELOW 97% TODAY. BP STABLE AND PULSE 70-90'S AFIB. SHE IS EATTING ABOUT 50% OF HER MEALS THEN FEELS "FULL". SHE IS SCHEDULED ANOTHER DOSE OF LOPRESSOR PO TONIGHT. NO ACUTE CHANGES TODAY THUS FAR. WILL GIVE REPORT TO NEXT SHIFT TO RESUME CARE.
[2024-06-15] MEDS ORDERED: Metoprolol Tartrate 25 MG Tab PO ONE (19:00)
--- NOTE | 2024-06-15 20:00 | NUR ---
ASSUMED CARE OF PT AT 1900. REPORT RECEIVED AT BEDSIDE. PT PRESENTS IN BED. ALERT AND ORIENTED. PLEASANT AND COOPERATIVE WITH CARE AND ASSESSMENT. DENIES PAIN OR N/V AT THIS TIME. PT ON ROOM AIR. MAINTAINS > 90 PERCENT SATURATIONS. AFIB PER MONITOR. PT MOVES ABOUT IN BED ON HER OWN. ASSIST WITH TURNS NEEDED. PT DOES DEMONSTRATE EXERTIONAL DYSPNEA. WILL REVIEW CHART AND PLAN OF CARE FOR THIS PT.
[2024-06-16] VITALS (8 sets, daily range): BP systolic 91–125; BP diastolic 60–91
--- NOTE | 2024-06-16 01:47 | NUR ---
PT HAS BEEN UP TO BEDSIDE COMMODE SEVERAL TIMES THIS SHIFT TO VOID. HAS HAD SMALL BM. PT HAS EXERTIONAL DYSPNEA. PT HAS REMAINED WITH HEART RATE AFIB 80'S TO 100'S.
[2024-06-16 04:33] LABS: Hematocrit 27.3 % (33.0-51.0); Hemoglobin 8.2 g/dL (11.5-16.0); Mean Corpuscular HGB 22.7 pg (26.0-34.0); Mean Corpuscular Volume 76 fL (80-100); NRBC ABSOLUTE 0.12 K/mm3 (0.00-0.02); Platelet Count 317 K/mm3 (150-400); RDW Coefficient Variation 20.6 % (11.7-14.2); RDW Standard Deviation 56.3 fL (35.1-46.3); Red Blood Cell Count 3.61 M/mm3 (3.80-5.20); White Blood Cell Count 12.01 K/mm3 (4.00-11.30)
[2024-06-16 04:48] LABS: Bun/Creatinine Ratio 30.4 (12.0-20.0); Calcium, Blood 8.2 mg/dL (8.5-10.1); Creatinine, Blood 0.95 mg/dL (0.40-1.00); Potassium, Blood 3.9 mmol/L (3.5-5.5)
--- NOTE | 2024-06-16 06:46 | NUR ---
PT HAS BEEN UP TO BEDSIDE COMMODE AT APPROX 2 HOURS. VOIDS AND HAS SMALL TO MEDIUM BOWEL MOVEMENTS. PT DOES HAVE SOME DYSPNEA WITH EXERTION. RECOVERS QUICKLY. HAS ONE EPISODE WHEREAS HER HEART RATE INCREASED TO 180'S FOR A BRIEF PERIOD AND SELF CORRECTS. PT WAS IN BED. NO EXERTION OR OTHER PRECEDING EVENTS. PT WAS UNAWARE AND ASYMPTOMATIC. PT CURRENTLY IN BED. WILL CONTINUE TO MONITOR PT, AND WILL REPORT OFF TO ONCOMING RN.
[2024-06-16] MEDS ORDERED: Metoprolol Succinate 25 MG TABCR PO SCH (09:00)
[2024-06-16] MEDS ORDERED: Torsemide 20 MG TAB PO SCH (09:00)
--- NOTE | 2024-06-16 18:21 | NUR ---
SHIFT SUMMARY: NEURO: PATIENT ALERT AND ORIENTED X4. PATIENT UP TO THE BESIDE COMMODE MANY TIMES THROUGHOUT THE SHIFT. PATIENT TOLERATED WELL, BUT SOME MINIMAL SHORTNESS OF BREATH AND MILD INCREASE IN HR NOTED. PATIENT RECOVERED QUICKLY ONCE BACK IN BED. PATIENT REQUIRED MINIMAL ASSISTANCE FROM STAFF. RESPRIRATORY: PATIENT CONTINUED TO BE STABLE ON ROOM AIR WITH SPO2>96%. MINIMAL SHORTNESS OF BREATH WITH ACTIVITY. PATIENT REPORTED OVERALL IMPROVEMENT IN BREATHING IN THE MORNING AND ESPECIALLY AFTER THE TORSEMIDE. LUNG SOUNDS IMPROVED THROUGHOUT THE SHIFT. CARDIAC: BLOOD PRESSURES STABLE THROUGHOUT THE SHIFT. SBP GREATER THAN 100 AND MAPS GREATER THAN 65. HR IN THE 80S-LOW 100S. PATIENT DENIES CHEST PAIN OR DISCOMFORT. PLAN IS FOR AN ANGIOGRAM TOMORROW. SHE UNDERSTANDS SHE IS NPO AT MIDNIGHT. GI/: PATIENT RESPONDED WELL TO PO TORSEMIDE WITH AROUND 2300ML OUT DURING THIS SHIFT. PATIENT HAD FREQUENT LIGHT YELLOW VOIDS. NO FOUL ODOR NOTED. PATIENT HAS AN ADEQUATE APPETITE. PATIENT TOLERATING ENSURES WELL. PSYCHSOCIAL: PATIENT RECEPTIVE TO CARE AND EDUCATION. SHE IS MOTIVATED AND ENGAGED IN HER PLAN OF CARE.
--- NOTE | 2024-06-16 20:00 | NUR ---
ASSUMED CARE OF PT AT 1900. REPORT RECEIVED AT BEDSIDE. PT PRESENTS ON BEDSIDE COMMODE. PT REPORTS THAT SHE HAS HAD MANY TRIPS TO BSC AFTER TORESIMIDE WAS GIVEN. PT CURRENTLY BACK TO BED. HAVE PLANNED WITH PT TO PLACE PUREWICK FOR THE NIGHT SO SHE IS ABLE TO REST. PT DEMONSTRATED ON HER RETURN TO BED THAT SHE WAS MUCH WEAKER THAN DAY PREVIOUS ASSESSMENT. PT AGREES THAT SHE IS SECONDARY TO MANY TIMES OUT OF BED TO VOID. PT UNDERSTANDS THAT SHE WILL BE NPO AFTER MIDNIGHT SECONDARY TO PLANNED ANGIOGRAM. WILL REVIEW CHART AND PLAN OF CARE FOR THIS PT.
[2024-06-16] MEDS ORDERED: Ciprofloxacin 500 MG Tab PO SCH (21:00)
[2024-06-17] VITALS (34 sets, daily range): BP systolic 82–133; BP diastolic 29–95
[2024-06-17 03:33] LABS: Hematocrit 28.1 % (33.0-51.0); Hemoglobin 8.4 g/dL (11.5-16.0)
[2024-06-17 03:49] LABS: Bun/Creatinine Ratio 29.1 (12.0-20.0); Calcium, Blood 8.5 mg/dL (8.5-10.1); Creatinine, Blood 0.93 mg/dL (0.40-1.00); Potassium, Blood 3.7 mmol/L (3.5-5.5)
[2024-06-17] MEDS ORDERED: Pantoprazole Sodium 20 MG Tab PO SCH (06:00)
--- NOTE | 2024-06-17 06:32 | NUR ---
PT HAS BEEN ABLE TO REST THIS NIGHT IN BED. HAS VOIDED PER PUREWICK QUANTITIY SUFFICIENT. PT DOES HAVE ONE EPISODE WHERE SHE AWAKENS AND FORGETS WHERE SHE IS. GETS OUT OF BED. REMOVES TELEMETRY LEADS AND TAKES OUT HER PUREWICK. GETS UP AND AMBULATES TO FIND COMMODE TO VOID. WHEN ENTERING ROOM, PT FOUND SITTING IN RECLINER CHAIR. DOES REORIENT WELL. PT RETURNED BACK TO BED WITH ASSIST. PUREWICK BACK IN PLACE. PT RESTING. SHE ACKNOWLEDGES PLANNED ANGIOGRAM THIS DAY. HAS BEEN NPO AFTER MIDNIGHT. WILL CONITNUE TO MONITOR PT, AND WILL REPORT OFF TO ONCOMING RN.
--- NOTE | 2024-06-17 07:22 | NUR ---
ASSUMPTION OF CARE: ASSUMED CARE OF PATIENT. PATIENT RESTING SOUNDLY IN BED. HR STABLE IN THE 80S-90S. LAST SET OF VITALS SHOW MAP >65. PATIENT APPEARS COMFORTABLE. NIGHT RN REPORTED PATIENT UP DURING THE NIGHT. PATIENT CONTINUES TO BE STABLE ON ROOM AIR. NO CONCERNS IDENTIFIED AT THIS TIME.
--- NOTE | 2024-06-17 08:18 | NUR ---
MILD CONFUSION: DURING AM VITALS, PATIENT REPEATEDLY REPORTING THAT HER NOC RN WAS SUPPOSED TO BE HER ONLY NURSE. REPORTED THAT SHE DIDN'T BELIEVE THAT THIS RN HAD BEEN ASSIGNED TO HER FOR THE DAY SHIFT. REQUESTING THAT THIS RN LEAVE THE ROOM. AM VITALS ARE STABLE. PATIENT AFEBRILE. ROLLER CLEANER AT BEDSIDE. PATIENT ALSO REQUESTED THAT SHE LEAVE THE ROOM. PATIENT MOVING ALL FOUR LIMBS INDEPENDENTLY. PATIENT KNOWS THAT SHE IS IN THE [place] AND THAT SHE IS TO HAVE A PROCEDURE ON HER HEART TODAY. PROVIDED A CALM, QUIET ENVIRONMENT FOR THE PATIENT. BED ALARM ON.
--- NOTE | 2024-06-17 10:24 | NUR ---
IMPROVED MENTAL STATUS: PATIENT CONTINUED TO HAVE SOME MILD CONFUSION THIS AM. PATIENT ABLE TO GET SOME ADDITIONAL SLEEP. UPON AWAKING AROUND 09:45, PATIENT ABLE TO SPEAK WITH HER NIECE, CAYDEN MEYERS RN. THIS RN ALSO ABLE TO SPEAK WITH NIECE. PATIENT MORE ORIENTED AFTER THIS PHONE CALL. SHE IS SITTING UP IN BED, ABLE TO DISCUSS THE UPCOMING EVENTS FOR THE DAY, AND CALM AND COOPERATIVE WITH CARE. SPOKE WITH PATIENT'S SPOUSE PAWEL TO GIVE UPDATE AND DISCUSS BENEFITS OF FAMILY COMING IN TO VISIT.
[2024-06-17] MEDS ORDERED: Verapamil HCL 2.5 MG/ML 2ML Injection ONE (10:59)
[2024-06-17] MEDS ORDERED: Heparin Sodium 1000 Units/ML 10ML MDV ONE ×2 (10:59→12:56)
[2024-06-17] MEDS ORDERED: NS 250 ML IV ONE (11:00)
[2024-06-17] MEDS ORDERED: NS 1,000 ML IV ONE ×2 (11:00→11:15)
[2024-06-17] MEDS ORDERED: Nitroglycerin 2 MG/20 ML BTL ONE (11:00)
--- NOTE | 2024-06-17 11:05 | NUR ---
"Spiritual Care Visit | Murse Request Pt. is awake in bed when this baggage handler was invited by the Pts. nurse to come visit the Pt. Pt. is pleasant and is aware and engaged, with only a few moments of isolated confusion. Facilitated a life review. Pt. verbalizes her move to the area to support her sister. Pt. also verbalized that she was able to donate stem cells to her sister, and the sister lived for 10 more years. Considered matters of love and sacrificial gifts. Pt. displayed evidence of feeling lonely as well. Pt. verbalized that other than her spouse, she didn't beleive there was anyone in her live who cared for her. Listen with empthy and interest. Prayed for Pt. Pt. verbalized gratitude for the spiritual care visit and welcomed this baggage handler to return."
[2024-06-17] MEDS ORDERED: FentaNYL Citrate 50 MCG/ML 2 ML Injection ONE (11:15)
[2024-06-17] MEDS ORDERED: Midazolam HCl 1MG / ML 2ML Vial ONE (11:15)
[2024-06-17] MEDS ORDERED: Aspirin 325 MG Tab ONE (11:19)
[2024-06-17] MEDS ORDERED: NS 1,000 ML IV SCH ×2 (13:50→16:30)
--- NOTE | 2024-06-17 14:30 | NUR ---
ARRIVAL BACK FROM DIRECT SERVICE PROFESSIONAL: PATIENT ARRIVED BACK FROM DIRECT SERVICE PROFESSIONAL AT 1405. PATIENT ALERT AND ORIENTED X4. PATIENT LAUGHING WITH STAFF. PATIENT HAS A TR BAND IN PLACE ON THE RIGHT WRIST. OBSERVED WITH DIRECT SERVICE PROFESSIONAL RN. STABLE DRAINAGE UNDER DRESSING PER DIRECT SERVICE PROFESSIONAL RN. PATIENT REPORTS SENSATION IN RIGHT FINGERS AND ABLE TO MOVE FINGERS FREELY. SPO2 PROBE ON RIGHT INDEX FINGER HAS CLEAR AND EVEN PLETH WAVE FORM. ETHAN DRESSING IN PLACE IN RIGHT AC FROM VENOUS ACCESS POINT DURING ANGIOGRAM. DRAINAGE OUTLINED ON DRESSING. VITALS Q15 X4 STABLE WITH MAPS >65. HR IN THE 80S - LOW 100S, AFIB. PATIENT DENIES CHEST PAIN/PRESSURE. PATIENT DENIES NAUSEA AND TOLERATING PO INTAKE. PUREWICK IN PLACE. CLEAN ATTENDS IN PLACE. PATIENT'S SPOUSE PAWEL AT BEDSIDE.
--- NOTE | 2024-06-17 15:28 | NUR ---
TRANSFER OF CARE AND RIGHT UPPER ARM: TRANSFERRED CARE TO [facility]. DURING BEDSIDE REPORT, MONTRELL NOTED SIZE OR RIGHT UPPER ARM AND DEEPENED BRUISING. PALPATION REVEALED SOME FIRMER TISSUE WITH TENDERNESS TO THE PATIENT. MEASURED CIRCUMFERENCE. DISCUSSED WITH ROULA Miranda FROM [employer]UMENT IN[employer]. MONTRELL APPLYING PRESSURE TO SITE TO HELP FURTHER ASSESS IF PATIENT HAS DEVELOPED A HEMATOMA.
--- NOTE | 2024-06-17 18:12 | NUR ---
Assumed care of patient at approx 1500. Patient post cathode washer, has right radial site, TR band in place with 11 cc in the band. Rigth Bracial site, previous blood noted, no additional bleeding. Held pressure to upper arm, no changes to swelling. Pt denies pain, chest pain/pressure, nausea, dizziness and numb/tingling. Tele afib 80-100's, bp soft this evening, notified Dr Perez, new order to finish this 1 bag of ns at 250ml/hr. Spo2 >90% on ra, breathing even and unlabored at rest, sob with exertion. Up with 1 person assist to bsc. Other vss. No other acute changes noted. Will continue to monitor.
--- NOTE | 2024-06-17 22:04 | NUR ---
ASSUMPTION OF CARE CARE OF PT ASSUMED FOLLOWING REPORT FROM DAY RN. PT LYING IN BED IN NO APPARENT DISTRESS. ALERT AND ORIENTED. AFEBRILE. NEUROVASCULARLY INTACT INCLUDING RIGHT ARM- SITE OF VENOUS AND RADIAL ACCESS TODAY IN DAM OPERATOR. TR BAND DEFLATED FOR 1.5 HRS. SMALL BLOOD PROXIMAL AND MEDIAL TO ACCESS PUNCTURE UNDER TR BAND. THIS IS STABLE ACCORDING TO DAY RN. TISSUE JUST PROXIMAL AND JUST DISTAL TO TR BAND IS SLIGHTLY FIRM TO TOUCH- THIS TO IS REPORTEDLY STABLE X SEVERAL HOURS. WILL REMOVE TR BAND SOON. HR REMAINS IN NARROW COMPLEX TACHYCARDIA A FLUTTER VS MAT VS SINUS TACH WITH PAC'S. BP STABLE WITH MAP > 70 FOLLOWING INITIATION OF FLUIDS. PT DENIES CHEST PAIN/PRESSURE. PT IS STILL SOB WITH EXERTION BUT NO SOB AT REST. OXYGEN SAT >95% ON RA. RARE DRY COUGH. BM'S FIRMING UP, A LITTLE SOFT. PT WOULD LIKE TO PREPARE FOR RETURN HOME BY NOT USING PUREWICK. WILL USE BSC. PT HAS CALL LIGHT NEARBY.
[2024-06-18] VITALS (62 sets, daily range): BP systolic 79–134; BP diastolic 53–102
[2024-06-18 03:49] LABS: Hematocrit 23.6 % (33.0-51.0); Mean Corpuscular HGB 22.4 pg (26.0-34.0); Mean Corpuscular HGB Conc 29.7 g/dL (31.5-36.5); Mean Corpuscular Volume 76 fL (80-100); Mean Platelet Volume 11.8 fL (9.1-12.4); NRBC ABSOLUTE 0.03 K/mm3 (0.00-0.02); NRBC Auto 0.3 /100 WBC (0.0-0.2); Platelet Count 331 K/mm3 (150-400); RDW Coefficient Variation 21.2 % (11.7-14.2); RDW Standard Deviation 57.7 fL (35.1-46.3); Red Blood Cell Count 3.12 M/mm3 (3.80-5.20); White Blood Cell Count 10.01 K/mm3 (4.00-11.30)
[2024-06-18 04:33] LABS: Bun/Creatinine Ratio 24.6 (12.0-20.0); Calcium, Blood 7.9 mg/dL (8.5-10.1); Creatinine, Blood 0.81 mg/dL (0.40-1.00)
--- NOTE | 2024-06-18 08:05 | NUR ---
AM NOTE... ASSUMED CARE OF PT AT 0700. PT IS A&Ox4. PT IS IN ON RA WITH O2 SATS>90% L/S CLEAR T/O DIM IN THE BASES. PT BECOMES VERY SOB WITH ACTIVITY. SHE IS IN A POSSIBLE WANDERING ATRIAL PACEMAKER RHYTHM AT THE TIME OF THIS ASSESSMENT. BP IS STABLE WITH MAPS>65. DEPENDENT EDEMA NOTED TO THE BLE. SCDs IN PLACE. TR BAND SITE IS STABLE WITH ARM BOARD IN PLACE. PT'S HGB WAS 7.0 PLANS FOR TRANSFUSION PER PROVIDER ORDER.
--- NOTE | 2024-06-18 08:05 | NUR ---
SHIFT SUMMARY PT LYING IN BED SLEEPING. IN NO APPARENT DISTRESS. ALERT AND ORIENTED ONCE AWAKE. PT HR IS IN THE 80'S AND THE RHYTHM IS SINUS TACH WITH PAC'S VS ATYPICAL FLUTTER VS A FIB. BP IS STABLE AFTER ALMOST 2L OF NS IN THE LAST 24 HOURS. O2 SATS WERE >92% ON RA- COUGH HAS MOSTLY DISSIPATED. PT IS SOB WITH EXERTION. OTHERWISE, NO CHEST PAIN/PRESSURE. ALSO NO AB PAIN, N/V. BM WERE FORMED AND BROWN. PT USED PUREWICK DURING MIDDLE OF NIGHT AFTER GOING WITHOUT FOR THE FIRST 4 HOURS OF SHIFT. PT WANTS TO TRIAL A NON-PUREWICK STATE BEFORE GOING HOME TO SUCH. R RADIAL AND R BRACHIAL ACCESS SITES ARE CLEAN DRY AND INTACT WITH MILD ECCYMOSIS IN THE VICINITY. PT HAS CALL LIGHT HANDY. REPORT GIVEN TO DAY RN.
[2024-06-18] MEDS ORDERED: Pantoprazole Sodium 40 MG Injection IV ONE (09:00)
[2024-06-18] MEDS ORDERED: Apixaban 5 MG Tab PO SCH (09:00)
[2024-06-18] MEDS ORDERED: Furosemide 40 MG Tab PO SCH (09:00)
[2024-06-18] MEDS ORDERED: Milrinone/Dextrose 100 ML IV SCH (10:35)
--- NOTE | 2024-06-18 12:46 | NUR ---
Call placed to Dr STEVENS to notify that milrinone has been infusing at 0.375 mcg/kg/min for one hour. HR is unchanged from baseline and BP is improved - noted to provider that pt is currently finishing 1 U PRBC as well. Pt denies chest pain and states "great" when asked how she is feeling. Provider requested milrinone to be increased to 0.5 mcg/kg/min and stated he will check on pt status in 2 hours.
[2024-06-18] MEDS ORDERED: Furosemide 10 MG/ML 4ML Vial IV ONE (13:20)
[2024-06-18 14:13] LABS: Mean Corpuscular HGB 23.9 pg (26.0-34.0); Mean Corpuscular Volume 77 fL (80-100); Mean Platelet Volume 11.5 fL (9.1-12.4); NRBC ABSOLUTE 0.02 K/mm3 (0.00-0.02); NRBC Auto 0.2 /100 WBC (0.0-0.2); Platelet Count 399 K/mm3 (150-400); RDW Coefficient Variation 21.2 % (11.7-14.2); RDW Standard Deviation 59.4 fL (35.1-46.3); Red Blood Cell Count 3.77 M/mm3 (3.80-5.20); White Blood Cell Count 10.49 K/mm3 (4.00-11.30)
[2024-06-18] MEDS ORDERED: Pantoprazole Sodium 40 MG Injection IV SCH (16:30)
--- NOTE | 2024-06-18 17:51 | NUR ---
SHIFT SUMMARY.... NO ACUTE NEGATIVE CHANGES NOTED THIS SHIFT. PT'S VS HAVE BEEN STABLE. PT WAS STARTED ON A MILRINONE GTT AT 0.375MCG/KG/MIN AND INCREASED TO 0.5MCG/KG/MIN NO FURTHER TITRATIONS PER DR. STEVENS. PT WAS GIVEN 1 UNIT OF PRBCs WHICH SHE TOLERATED THE TRANSFUSION WELL. PT STATED SHE FELT MUCH BETTER AFTER GETTING THE BLOOD. PT WAS UP TO THE BSC WITH SBA TO HAVE 2 BMS THIS SHIFT, ON BROWN AND SOFT AND THE OTHER WAS BROWN/GREEN AND SOFT. GI CONSULT WAS PLACED TODAY AND GI PROVIDER IS AWARE OF THE PT. PURWICK IN PLACE FOR STRICT I'S & O'S. PT CONTINUES TO HAVE INCREASED WORK OF BREATHING/SOB WITH ANY MOVEMENT/ACTIVITY. TR BAND SITE IS STABLE.
--- NOTE | 2024-06-18 20:57 | NUR ---
ASSUMED CARE AT 1900: PATIENT IS A&OX4 GCS15 LYING IN BED, SOME DISCOMFORT IN THEIR RIGHT UPPER ARM WHEN THEY TRY MOVING IT. THEY ARE IN A-FIB WITH HR RANGING HIGH 90S TO 120S. THEIR BP IS STABLE AND THEY ARE ON A CONTINUOUS MILRANONE INFUSION. IS INDEPENDPENT WITH REPOSTIONING, WILL GET SHORT OF BREATHE WITH ACTIVITY AND HAS PUREWICK IN PLACE. CALL LIGHT PLACED WITHIN REACH.
[2024-06-19] VITALS (59 sets, daily range): BP systolic 78–133; BP diastolic 45–84
[2024-06-19 04:16] LABS: BASOPHILS ABSOLUTE AUTO 0.03 K/mm3 (0.00-0.23); BASOPHILS PERCENT AUTO 0 % (0-2); EOSINOPHILS PERCENT AUTO 0 % (0-6); Hemoglobin 8.2 g/dL (11.5-16.0); IMMATURE GRAN ABSOLUTE AUTO 0.17 K/mm3 (0.00-0.10); IMMATURE GRAN PERCENT AUTO 2 % (0-1); LYMPHOCYTES ABSOLUTE AUTO 1.52 K/mm3 (0.84-5.20); LYMPHOCYTES PERCENT AUTO 14 % (21-46); MONOCYTES ABSOLUTE AUTO 1.11 K/mm3 (0.16-1.47); MONOCYTES PERCENT AUTO 10 % (4-13); Mean Corpuscular HGB 23.7 pg (26.0-34.0); Mean Corpuscular HGB Conc 31.5 g/dL (31.5-36.5); Mean Corpuscular Volume 75 fL (80-100); NEUTROPHILS ABSOLUTE AUTO 8.44 K/mm3 (1.96-9.15); NEUTROPHILS PERCENT AUTO 75 % (41-73); Platelet Count 362 K/mm3 (150-400); RDW Coefficient Variation 21.1 % (11.7-14.2); RDW Standard Deviation 56.8 fL (35.1-46.3); Red Blood Cell Count 3.46 M/mm3 (3.80-5.20); White Blood Cell Count 11.27 K/mm3 (4.00-11.30)
[2024-06-19 04:35] LABS: Albumin, Blood 2.1 g/dL (3.4-5.0); Albumin/Globulin Ratio 0.7 (0.8-1.8); Bilirubin, Total 0.6 mg/dL (0.1-1.0); Bun/Creatinine Ratio 24.2 (12.0-20.0); Calcium, Blood 8.1 mg/dL (8.5-10.1); Creatinine, Blood 0.83 mg/dL (0.40-1.00); Globulin, Blood 3.2 g/dL (2.2-4.0); Potassium, Blood 3.8 mmol/L (3.5-5.5); Total Protein, Blood 5.3 g/dL (6.4-8.2)
[2024-06-19] MEDS ORDERED: Pantoprazole Sodium 40 MG Tab PO SCH (06:00)
--- NOTE | 2024-06-19 06:08 | NUR ---
SHIFT SUMMARY: PATIENT REMAINED STABLE AND SLEPT THROUGHOUT THE NIGHT. THEY BECAME OUT OF BREATH AFTER TRYING TO READJUST THEMSELVES BUT AFTER LAYING DOWN THEY WERE NO LONGER FELT OUT OF BREATHE. THEY DID HAVE AN OCCASSIONAL COUGH WHILE TRYING TO SLEEP.
[2024-06-19] MEDS ORDERED: Furosemide 10 MG/ML 4ML Vial IV SCH (09:00)
[2024-06-19 11:09] LABS: Percent Saturation 4.7 % (15.0-50.0)
[2024-06-19 13:09] LABS: Hematocrit 28.9 % (33.0-51.0); Hemoglobin 8.8 g/dL (11.5-16.0); Mean Corpuscular HGB 23.2 pg (26.0-34.0); Mean Corpuscular HGB Conc 30.4 g/dL (31.5-36.5); Mean Corpuscular Volume 76 fL (80-100); Mean Platelet Volume 11.5 fL (9.1-12.4); Platelet Count 413 K/mm3 (150-400); RDW Coefficient Variation 21.1 % (11.7-14.2); RDW Standard Deviation 58.1 fL (35.1-46.3); Red Blood Cell Count 3.79 M/mm3 (3.80-5.20); White Blood Cell Count 10.42 K/mm3 (4.00-11.30)
--- NOTE | 2024-06-19 14:00 | NUR ---
PT UPDATE... AT APROX 1200 VICE PRESIDENT RISK MANAGEMENT WAS AT THE BEDSIDE TO VISIT THE PT. PER THE PROVIDER THE MILRINONE GTT WAS STOPPED D/T THE PT'S INCREASE IN HEART RATE. PT'S RESTING RATE HAS BEEN 100'S-110'S WITH SHORT INCREASES TO THE 140'S-150'S, PT'S HR WITH ACTIVITY HAS BEEN 120'S-130'S BUT THE RATE RECOVERS ONCE SHE IS RESTED. PURWICK CONTINUES TO BE IN PLACE WHILE THE PT IS IN BED D/T FREQUENT VOIDS FROM THE LASIX. PT HAS HAD 2 BROWN SOFT FORMED BMs SO FAR THIS SHIFT.
--- NOTE | 2024-06-19 18:16 | NUR ---
SHIFT SUMMARY.... PT'S HR HAS IMPROVED SINCE THE MILRINONE DRIP WAS STOPPED CURRENTLY THE PT'S HR IS 80'S-90'S BP IS 130'S-80'S. MADIHAWICK CONTINUES TO WORK WELL WHILE THE PT IS IN BED. PT CONTINUES TO BE ON RA WITH O2 SATS>95%. PLAN IS FOR THE PT TO BE STARTED ON CLEAR LIQUIDS AND START THE COLON PREP TOMORROW FOR UPPER AND LOWER SCOPE ON FRIDAY AFTERNOON PER DR. ROME.
--- NOTE | 2024-06-19 21:19 | NUR ---
ASSUMED CARE AT START OF SHIFT PATIENT IN A&OX4 GCS15 LYING IN BED WITH NO COMPLAINTS AT THIS TIME. PT IS A BLE TO REPOSTION ON THEIR OWN BUT BECOMES SOB UPON EXERTION. PATIENT IV LINES ARE PATENT. CALL LIGHT WAS PLACED WITHIN REACH AND THEY WERE TOLD TO PRESS IT IF THEY NEED ASSISTANCE.
[2024-06-20] VITALS (10 sets, daily range): BP systolic 93–125; BP diastolic 52–83
[2024-06-20 05:28] LABS: BASOPHILS ABSOLUTE AUTO 0.03 K/mm3 (0.00-0.23); BASOPHILS PERCENT AUTO 0 % (0-2); EOSINOPHILS PERCENT AUTO 0 % (0-6); Hematocrit 28.2 % (33.0-51.0); Hemoglobin 8.8 g/dL (11.5-16.0); IMMATURE GRAN ABSOLUTE AUTO 0.11 K/mm3 (0.00-0.10); IMMATURE GRAN PERCENT AUTO 1 % (0-1); LYMPHOCYTES ABSOLUTE AUTO 1.41 K/mm3 (0.84-5.20); LYMPHOCYTES PERCENT AUTO 12 % (21-46); MONOCYTES ABSOLUTE AUTO 1.01 K/mm3 (0.16-1.47); MONOCYTES PERCENT AUTO 9 % (4-13); Mean Corpuscular HGB 23.8 pg (26.0-34.0); Mean Corpuscular HGB Conc 31.2 g/dL (31.5-36.5); Mean Corpuscular Volume 76 fL (80-100); Mean Platelet Volume 11.2 fL (9.1-12.4); NEUTROPHILS ABSOLUTE AUTO 9.19 K/mm3 (1.96-9.15); NEUTROPHILS PERCENT AUTO 78 % (41-73); Platelet Count 377 K/mm3 (150-400); RDW Coefficient Variation 21.1 % (11.7-14.2); White Blood Cell Count 11.75 K/mm3 (4.00-11.30)
[2024-06-20 05:52] LABS: Albumin, Blood 2.3 g/dL (3.4-5.0); Anion Gap 9 mmol/L (3-11); Blood Urea Nitrogen 16 mg/dL (8-24); Bun/Creatinine Ratio 20.5 (12.0-20.0); CO2, Blood 25 mmol/L (21-32); Calcium, Blood 8.1 mg/dL (8.5-10.1); Chloride, Blood 109 mmol/L (98-108); Creatinine, Blood 0.78 mg/dL (0.40-1.00); Glomerular Filtration Rate 80 (60-); Glucose, Blood 125 mg/dL (70-99); Phosphorus, Blood 2.8 mg/dL (2.5-4.9); Potassium, Blood 3.8 mmol/L (3.5-5.5); Sodium, Blood 139 mmol/L (136-145)
--- NOTE | 2024-06-20 06:27 | NUR ---
SHIFT SUMMARY: PATIENT WAS STABLE AND HAD NO COMPLAINTS THROUGHTOUT THE SHIFT. THEY WERE ABLE TO SLEEP OFF AND ON THROUGHOUT THE NIGHT. PT HR REMAINED IN THE 90'S - 100'S AND THEIR SPO2 > 95% ON RA. THEY WERE ABLE TO STAND AND USE THE BEDSIDE COMMODE WITH ASSITANCE. THEY IV LINE IN THE L HAND WAS LEAKING SLIGHTLY AND THEY NS WAS DISCONTECTED FROM IT, IV LINE STILL FLUSHING WELL. PATEINT WAS HELPED INTO A POSTION OF COMFORT AND THEIR CALL LIGHT WAS PLACED WITHIN REACH. THEY WERE TOLD TO PRESS CALL BUTTON IF THEY NEED ASSISTANCE.
[2024-06-20] MEDS ORDERED: Sod Ferric Gluc Complx/Sucrose 125 MG in NS 100 ML IV SCH (09:00)
[2024-06-20] MEDS ORDERED: Polyethylene Glycol 3350 17 gm PO ONE (11:00)
--- NOTE | 2024-06-20 13:02 | NUR ---
REASSESSMENT PT HAS BEEN SITTING UP IN THE CHAIR SINCE BREAKFAST. SHE IS ALERT AND ORIENTED. MIRALX GIVEN PER DR. ROME'S ORDERS. SHE HAS HAD 1 BM. DISCUSSED PLAN FOR BOWEL PREP THIS EVENING WITH PT. TOELRATING CLEAR LIQUID DIET. LUNGS ARE CLEAR, RA. AFIB WITH RATE IN THE LOW 100S. USING PUREWICK TO VOID. PT'S SO IS AT THE BEDSIDE.
[2024-06-20] MEDS ORDERED: Ondansetron HCl 2 MG / ML 2ML Vial IV ONE (16:30)
[2024-06-20] MEDS ORDERED: Sodium, Potassium,Mag Sulfates 354 ML PO ONE (17:00)
--- NOTE | 2024-06-20 17:05 | NUR ---
SHIFT SUMMARY PT HAS BEEN SITTING UP IN THE CHAIR THROUGHOUT THE DAY. SHE REMAINS ALERT AND ORIENTED. CLEAR LUNGS, RA. GOES BETWEEN SR AND AFIB, MAP 78. SHE HAS BEEN ON CLEAR LIQUIDS AND IS STARTING HER BOWEL PREP THIS EVENING.
--- NOTE | 2024-06-20 19:30 | NUR ---
ASSUMPTION OF CARE: ASSUMED CARE OF PT AT 1900. PT ALERT AND ORIENTED. FOLLOWS DIRECTION AND MAKES NEEDS KNOWN. DENIES PAIN. ABLE TO TRANSFER TO BSC WITH MINIMAL ASSIST. VOIDING YELLOW URINE. HAVING LIQUID STOOL R/T BOWEL PREP FOR SCOPE TOMORROW. TOLERATING ICE CHIPS AND WATER. DENIES N/V. SOCK DRIER IN PLACE, AFIB WITH HR 80'S-100'S WITH ACTIVITY. SBP 116. DENIES CP/PRESSURE. ON RA WITH SPO2 HIGH 90'S WITH SPOT CHECK. DENIES SOB. LUNGS CLEAR. PT PCU STATUS. POWERGLIDE TO GI PATENT AND SALINE LOCKED. PT UP IN CHAIR. CALL LIGHT IN REACH.
[2024-06-21] VITALS (8 sets, daily range): BP systolic 93–143; BP diastolic 65–93
[2024-06-21 05:06] LABS: BASOPHILS ABSOLUTE AUTO 0.03 K/mm3 (0.00-0.23); BASOPHILS PERCENT AUTO 0 % (0-2); EOSINOPHILS PERCENT AUTO 0 % (0-6); Hematocrit 28.4 % (33.0-51.0); Hemoglobin 8.9 g/dL (11.5-16.0); IMMATURE GRAN ABSOLUTE AUTO 0.14 K/mm3 (0.00-0.10); IMMATURE GRAN PERCENT AUTO 1 % (0-1); LYMPHOCYTES ABSOLUTE AUTO 1.26 K/mm3 (0.84-5.20); LYMPHOCYTES PERCENT AUTO 11 % (21-46); MONOCYTES ABSOLUTE AUTO 1.05 K/mm3 (0.16-1.47); MONOCYTES PERCENT AUTO 9 % (4-13); Mean Corpuscular HGB 23.5 pg (26.0-34.0); Mean Corpuscular HGB Conc 31.3 g/dL (31.5-36.5); Mean Corpuscular Volume 75 fL (80-100); Mean Platelet Volume 11.3 fL (9.1-12.4); NEUTROPHILS ABSOLUTE AUTO 9.33 K/mm3 (1.96-9.15); NEUTROPHILS PERCENT AUTO 79 % (41-73); Platelet Count 389 K/mm3 (150-400); RDW Coefficient Variation 21.4 % (11.7-14.2); RDW Standard Deviation 57.6 fL (35.1-46.3); Red Blood Cell Count 3.78 M/mm3 (3.80-5.20); White Blood Cell Count 11.81 K/mm3 (4.00-11.30)
--- NOTE | 2024-06-21 05:19 | NUR ---
SHIFT SUMMARY: PT REMAINS ALERT AND ORIENTED T/O THE NIGHT, NO ACUTE CHANGES. ABLE TO REST OFF AND ON. REMAINS ON RA, SPO2 HIGH 90'S, NO C/O SOB. REMAINS IN AFIB WITH HR 90-100'S. SBP 90-100. DENIES CP. ABLE TO VOID YELLOW URINE. CONTINUES TO HAVE SMALL LIQUID BM'S FROM BOWEL PREP. NPO SINCE 0, EXCEPT FOR WATER. POWERGLIDE TO GI PATENT, NO LONGER DRAWS. SALINE LOCKED. DENIES N/V. MOVING IN BED IND. BED LOW AND LOCKED, CALL LIGHT IN REACH.
[2024-06-21 05:21] LABS: Bun/Creatinine Ratio 15.4 (12.0-20.0); Calcium, Blood 8.3 mg/dL (8.5-10.1); Creatinine, Blood 0.78 mg/dL (0.40-1.00); Potassium, Blood 3.4 mmol/L (3.5-5.5)
[2024-06-21] MEDS ORDERED: Potassium Chloride 20 MEQ TabCR PO ONE (05:30)
[2024-06-21] MEDS ORDERED: Ondansetron HCl 2 MG / ML 2ML Vial IV ONE (07:30)
[2024-06-21] MEDS ORDERED: Sodium, Potassium,Mag Sulfates 354 ML PO ONE (08:00)
--- NOTE | 2024-06-21 08:53 | NUR ---
THIS RN ASSUMED CARE OF PT AT 0800. PT IS ALERT AND ORIENTED X4, VERY PLEASANT AND CALLS OUT APPROPRIATELY. PT HEART RATE IN THE 90-110s, BLOOD PRESSURE STABLE AT 143/93 MAP OF 105, PT DENIES CHEST PAIN UPON ASSESSMENT. PT SOUNDS CLEAR THROUGHOUT, ON ROOM AIR SATTING >92%, PT DENIES SHORTNESS OF BREATH UPON ASSESSMENT. PT ABLE TO STAND AND USE BEDSIDE COMMODE. PT IS GOING FOR A COLONOSCOPY LATER TODAY. NO OTHER INTERVENTIONS AT THIS TIME, IS AT BEDSIDE TALKING WITH PT ABOUT POSSIBLE VALVE REPLACEMENT. PLAN OF CARE CONTINUED.
[2024-06-21] MEDS ORDERED: Digoxin 0.125 MG in NS 4.5 ML IV SCH (09:30)
[2024-06-21] MEDS ORDERED: propofoL 40 ML IV ONE (11:07)
[2024-06-21] MEDS ORDERED: Benzocaine Oral Spray 0.5ML UD ONE (11:07)
[2024-06-21] MEDS ORDERED: Lactated Ringer's 1,000 ML IV SCH (11:10)
--- NOTE | 2024-06-21 11:38 | NUR ---
UPDATE: PT IS GOING TO DAY SURGERY AT 1115 FOR AN UPPER ENTEROSCOPY AND A COLONOSCOPY WITH . NO OTHER INTERVENTIONS AT THIS TIME. PLAN OF CARE CONTINUED.
--- NOTE | 2024-06-21 11:39 | NUR ---
PT BROUGHT FROM FLOOR TO DAY SURGERY. PT HAS POWERGLIDE TO LEFT UPPER ARM THAT FLUSHES WELL AND FLOWS TO GRAVITY. History, Chart, Medications and Allergies reviewed before start of procedure. Lungs clear T/O to Auscultation. Patient confirms NPO status and agrees with scheduled surgery. Pre-Op teaching done. Pt verbalizes understanding.
[2024-06-21] MEDS ORDERED: Lidocaine 2% Jelly Uro-Jet ONE (12:15)
--- NOTE | 2024-06-21 12:21 | NUR ---
06/21/24 1221 Leelee Del Rio History, Chart, Medications and Allergies reviewed before start of procedure. DR HOGUE PROVIDING ANESTHESIA SEE RECORDS
--- NOTE | 2024-06-21 13:25 | NUR ---
PT UPDATE: PT ARRIVED BACK ICU 08, PT IS AWAKE AND ALERT AND ORIENTED, PROCEDURE WENT WELL. VITAL SIGNS ARE HR: 83, BP: 116/73 MAP OF 83, RR: 16 AND SPO2: 95%. NO OTHER INTERVENTIONS AT THIS TIME. PLAN OF CARE CONTINUED.
[2024-06-21] MEDS ORDERED: Potassium Chloride 10 Meq Tablet SA PO ONE (15:00)
--- NOTE | 2024-06-21 17:53 | NUR ---
PT SUMMARY PT WENT AND GOT A ENTEROSCOPY AND COLONOSCOPY TODAY WITH 3 CLIPPINGS, PT CAME BACK TO THE UNIT AROUND 1315, PT ALERT AND ORIETNED, NO OTHER ACUTE EVENTS TO REPORT THROUGHOUT THE DAY. PT IS SLEEPING COMFORTABLLY IN BED. NO OTHER INTERVENTIONS AT THIS TIME. PLAN OF CARE CONTINUED.
--- NOTE | 2024-06-21 20:42 | NUR ---
ASSUMPTION OF CARE: ASSUMED CARE OF PT AT 1900. PT ALERT AND ORIENTED, FOLLOWS DIRECTION AND MAKES NEEDS KNOWN. PT PCU STATUS. ON RA WITH SPO2 HIGH 90'S WITH SPOT CHECKS. DENIES SOB AT REST. RAND TACKER IN PLACE, AFIB WITH HR 80'S. SBP 110'S. DENIES CP. TOLERATING PO INTAKE WITH NO C/O N/V. POWERGLIDE TO GI PATENT AND SALINE LOCKED. PT DENIES PAIN T/O. PUREWICK IN PLACE WHILE IN BED PER PT REQUEST, VOIDING INTO THE COMMODE WHILE AWAKE. BED LOW AND LOCKED, CALL LIGHT IN REACH.
[2024-06-22] VITALS: BP 102/65
[2024-06-22 03:17] LABS: BASOPHILS ABSOLUTE AUTO 0.04 K/mm3 (0.00-0.23); BASOPHILS PERCENT AUTO 0 % (0-2); EOSINOPHILS PERCENT AUTO 0 % (0-6); Hematocrit 30.3 % (33.0-51.0); Hemoglobin 9.3 g/dL (11.5-16.0); IMMATURE GRAN ABSOLUTE AUTO 0.11 K/mm3 (0.00-0.10); IMMATURE GRAN PERCENT AUTO 1 % (0-1); LYMPHOCYTES ABSOLUTE AUTO 2.01 K/mm3 (0.84-5.20); LYMPHOCYTES PERCENT AUTO 12 % (21-46); MONOCYTES ABSOLUTE AUTO 1.42 K/mm3 (0.16-1.47); MONOCYTES PERCENT AUTO 8 % (4-13); Mean Corpuscular HGB 23.4 pg (26.0-34.0); Mean Corpuscular HGB Conc 30.7 g/dL (31.5-36.5); Mean Corpuscular Volume 76 fL (80-100); NEUTROPHILS ABSOLUTE AUTO 13.77 K/mm3 (1.96-9.15); NEUTROPHILS PERCENT AUTO 79 % (41-73); Platelet Count 391 K/mm3 (150-400); RDW Coefficient Variation 21.7 % (11.7-14.2); RDW Standard Deviation 58.4 fL (35.1-46.3); Red Blood Cell Count 3.97 M/mm3 (3.80-5.20); White Blood Cell Count 17.35 K/mm3 (4.00-11.30)
[2024-06-22 03:43] LABS: Bun/Creatinine Ratio 15.9 (12.0-20.0); Calcium, Blood 8.2 mg/dL (8.5-10.1); Creatinine, Blood 0.88 mg/dL (0.40-1.00); Potassium, Blood 4.1 mmol/L (3.5-5.5)
[2024-06-22 04:23] VITALS: BP 104/59
--- NOTE | 2024-06-22 05:39 | NUR ---
SHIFT SUMMARY: NO ACUTE CHANGES T/O THE NIGHT. REMAINS ALERT AND ORIENTED. ABLE TO REST. REMAINS ON RA, DENIES SOB. REMAINS IN AFIB, HR 70-100'S. SBP 100'S. NO C/O CP. PUREWICK IN PLACE, DRAINING YELLOW URINE. POWERGLIDE PATENT AND SALINE LOCKED. TOLERATING PO INTAKE. REMAINS PCU STATUS. MOVES IND IN BED. BED LOW AND LOCKED, CALL LIGHT IN REACH.
--- NOTE | 2024-06-22 07:00 | NUR ---
ASSUMPTION OF CARE PT WAKENS EASILY TO VERBAL STIMULI. SHE IS ALERT AND ORIENTED. AFIB ON MONITOR WITH RATE IN 80S. BED IN LOW POSITION, CALL LIGHT WITHIN REACH.
[2024-06-22] MEDS ORDERED: Losartan Potassium 25 MG Tab PO SCH ×2 (09:00)
[2024-06-22] MEDS ORDERED: Torsemide 20 MG TAB PO SCH (09:00)
[2024-06-22] MEDS ORDERED: Digoxin 50 mcg/ml 1 ml Dose PO SCH (09:00)
[2024-06-22] MEDS ORDERED: Spironolactone 12.5 MG TAB PO SCH (09:00)
[2024-06-22] MEDS ORDERED: Digoxin 0.125 MG Tab PO SCH (09:00)
[2024-06-22 09:14] VITALS: BP 114/71
--- NOTE | 2024-06-22 10:25 | NUR ---
Spiritual Care Visit. Visited Pt. immediately after ICU rounding. Pt. is awake in bed and welcomes my visit. Pt. is pleasant and is fully aware and engaged with her plan of care moving forward. Facilitated a short life review and sought to normalize the Pt. experience. Pt. displays evidence of hopefulness and gratitude. Prayed for the Pt. Pt. verbalized her gratitude for all of the care she has receive including spiritual care.
[2024-06-22 10:51] VITALS: BP 91/61
[2024-06-22 11:34] VITALS: BP 110/65
[2024-06-22] MEDS ORDERED: DIGOX125 MC1 PO (12:08)
[2024-06-22] MEDS ORDERED: LOSA25 PO (12:08)
[2024-06-22] MEDS ORDERED: MELATONIN5 M1 PO (12:09)
[2024-06-22] MEDS ORDERED: SPIR25 PO (12:10)
[2024-06-22 13:49] VITALS: BP 94/57
--- NOTE | 2024-06-22 14:10 | NUR ---
DISCHARGE PT GIVEN DISCHARGE INSTRUCTIONS. PRESCRIPTIONS SENT OVER TO [facility]. ALL BELONGINGS WITH PT. PT PROVIDED WHEELCHAIR RIDE TO VEHICLE.
== END 2024-06-22 14:10 | disposition home or self-care (01) | DRG 871 ==
LOC: ER 12:16 → ICUE 17:27 → ERHOLD 17:27 → ICUE 17:27
PROVIDERS: Emergency Medicine; Family Medicine; Internal Medicine Gastroenterology; Student in an Organized Health Care Education/Training Program; ADMIT Internal Medicine
PROC: 3E03329 Introduction of Other Anti-infective into Peripheral Vein, Percutaneous Approach (ICD-10-PCS; principal; 2024-06-11)
PROC: 3E033XZ Introduction of Vasopressor into Peripheral Vein, Percutaneous Approach (ICD-10-PCS; 2024-06-11)
PROC: 4A023N8 Measurement of Cardiac Sampling and Pressure, Bilateral, Percutaneous Approach (ICD-10-PCS; 2024-06-17)
PROC: B2111ZZ Fluoroscopy of Multiple Coronary Arteries using Low Osmolar Contrast (ICD-10-PCS; 2024-06-17)
PROC: 4A033BC Measurement of Arterial Pressure, Coronary, Percutaneous Approach (ICD-10-PCS; 2024-06-17)
PROC: B240ZZ3 Ultrasonography of Single Coronary Artery, Intravascular (ICD-10-PCS; 2024-06-17)
PROC: 30233N1 Transfusion of Nonautologous Red Blood Cells into Peripheral Vein, Percutaneous Approach (ICD-10-PCS; 2024-06-18)
PROC: 0DJ08ZZ Inspection of Upper Intestinal Tract, Via Natural or Artificial Opening Endoscopic (ICD-10-PCS; 2024-06-21)
PROC: 0W3P8ZZ Control Bleeding in Gastrointestinal Tract, Via Natural or Artificial Opening Endoscopic (ICD-10-PCS; 2024-06-21)
DX: A41.51 Sepsis due to Escherichia coli [E. coli] (principal); I21.A1 Myocardial infarction type 2; I50.23 Acute on chronic systolic (congestive) heart failure; R65.21 Severe sepsis with septic shock; R57.0 Cardiogenic shock; N39.0 Urinary tract infection, site not specified; N17.9 Acute kidney failure, unspecified; E87.20 Acidosis, unspecified; E87.1 Hypo-osmolality and hyponatremia; T82.857A Stenosis of other cardiac prosthetic devices, implants and grafts, initial encounter; D62 Acute posthemorrhagic anemia; K92.1 Melena; K63.3 Ulcer of intestine; I25.10 Atherosclerotic heart disease of native coronary artery without angina pectoris; I48.0 Paroxysmal atrial fibrillation; E78.5 Hyperlipidemia, unspecified; I05.2 Rheumatic mitral stenosis with insufficiency; I27.22 Pulmonary hypertension due to left heart disease; I11.0 Hypertensive heart disease with heart failure; M81.0 Age-related osteoporosis without current pathological fracture; J43.9 Emphysema, unspecified; K22.2 Esophageal obstruction; K64.4 Residual hemorrhoidal skin tags; K63.5 Polyp of colon; K63.89 Other specified diseases of intestine; Y71.2 Prosthetic and other implants, materials and accessory cardiovascular devices associated with adverse incidents; Z79.01 Long term (current) use of anticoagulants; Z91.040 Latex allergy status; Z79.84 Long term (current) use of oral hypoglycemic drugs; Z87.891 Personal history of nicotine dependence; Z85.828 Personal history of other malignant neoplasm of skin
CPT/HCPCS: 0241U; 36415; 36430; 51798; 71045; 71260; 76937; 80048; 80053; 80069; 80202; 81001; 82272; 82728; 82803; 83540; 83550; 83605; 83690; 83735; 83880; 84100; 84484; 85014; 85018; 85025; 85027; 85347; 85520; 85610; 85730; 86850; 86900; 86901; 86923; 87040; 87077; 87086; 87186; 88305; 92978; 92979; 93005; 93010; 93308; 93456; 93571; 94760; 94762; 96365; 96366; 96368; 99152; 99153; 99291-25; A9270; C1751; C1753; C1769; C1887; C1894; J0282; J0696; J1160; J1644; J1940; J2185; J2250; J2260; J2371; J2405; J2470; J2543; J2704; J2916; J3010; J3370; J3475; J7030; J7040; J7050; J7060; J7120; P9016; Q9967

== ENCOUNTER → 2024-09-27 | Outpatient (CLI) | payer MEDICARE, OTHER ==
[~2024-09-27] MED LIST changes: +DIGOX125 MC1 PO; +LOSA25 PO; +MELATONIN5 M1 PO
[2024-09-27 18:10] LABS: BASOPHILS ABSOLUTE AUTO 0.05 K/mm3 (0.00-0.23); BASOPHILS PERCENT AUTO 1 % (0-2); EOSINOPHILS PERCENT AUTO 1 % (0-6); Hematocrit 31.7 % (33.0-51.0); Hemoglobin 9.8 g/dL (11.5-16.0); IMMATURE GRAN ABSOLUTE AUTO 0.02 K/mm3 (0.00-0.10); IMMATURE GRAN PERCENT AUTO 0 % (0-1); LYMPHOCYTES ABSOLUTE AUTO 1.17 K/mm3 (0.84-5.20); LYMPHOCYTES PERCENT AUTO 12 % (21-46); MONOCYTES ABSOLUTE AUTO 0.95 K/mm3 (0.16-1.47); MONOCYTES PERCENT AUTO 10 % (4-13); Mean Corpuscular HGB 25.5 pg (26.0-34.0); Mean Corpuscular HGB Conc 30.9 g/dL (31.5-36.5); Mean Corpuscular Volume 83 fL (80-100); Mean Platelet Volume 12.4 fL (9.1-12.4); NEUTROPHILS ABSOLUTE AUTO 7.13 K/mm3 (1.96-9.15); NEUTROPHILS PERCENT AUTO 76 % (41-73); Platelet Count 275 K/mm3 (150-400); RDW Coefficient Variation 13.9 % (11.7-14.2); RDW Standard Deviation 41.6 fL (35.1-46.3); Red Blood Cell Count 3.84 M/mm3 (3.80-5.20); White Blood Cell Count 9.42 K/mm3 (4.00-11.30)
[2024-09-27 18:30] LABS: Albumin, Blood 3.7 g/dL (3.4-5.0); Albumin/Globulin Ratio 1.1 (0.8-1.8); Bilirubin, Total 0.9 mg/dL (0.1-1.0); Bun/Creatinine Ratio 18.4 (12.0-20.0); Calcium, Blood 9.3 mg/dL (8.5-10.1); Creatinine, Blood 1.25 mg/dL (0.40-1.00); Globulin, Blood 3.4 g/dL (2.2-4.0); Potassium, Blood 4.7 mmol/L (3.5-5.5); Total Protein, Blood 7.1 g/dL (6.4-8.2)
== END | disposition home or self-care (01) ==
LOC: LAB 10:04 → LAB SHORT 10:04
PROVIDERS: Student in an Organized Health Care Education/Training Program
DX: D50.0 Iron deficiency anemia secondary to blood loss (chronic) (principal); I50.20 Unspecified systolic (congestive) heart failure
CPT/HCPCS: 80053; 85025

== ENCOUNTER 2024-10-04 08:31 | Emergency (ER) | payer MEDICARE, OTHER ==
[~2024-10-04] VITALS: Ht 165.1 cm; Wt 57.1 kg
[2024-10-04] MEDS ORDERED: Bumetanide2 MG PO (08:51)
[2024-10-04 09:06] LABS: BASOPHILS ABSOLUTE AUTO 0.06 K/mm3 (0.00-0.23); BASOPHILS PERCENT AUTO 1 % (0-2); EOSINOPHILS ABSOLUTE AUTO 0.25 K/mm3 (0.00-0.68); EOSINOPHILS PERCENT AUTO 3 % (0-6); Hematocrit 34.4 % (33.0-51.0); Hemoglobin 10.7 g/dL (11.5-16.0); IMMATURE GRAN ABSOLUTE AUTO 0.02 K/mm3 (0.00-0.10); IMMATURE GRAN PERCENT AUTO 0 % (0-1); LYMPHOCYTES ABSOLUTE AUTO 1.44 K/mm3 (0.84-5.20); LYMPHOCYTES PERCENT AUTO 18 % (21-46); MONOCYTES ABSOLUTE AUTO 0.90 K/mm3 (0.16-1.47); MONOCYTES PERCENT AUTO 11 % (4-13); Mean Corpuscular HGB Conc 31.1 g/dL (31.5-36.5); Mean Corpuscular Volume 81 fL (80-100); NEUTROPHILS ABSOLUTE AUTO 5.55 K/mm3 (1.96-9.15); NEUTROPHILS PERCENT AUTO 68 % (41-73); NRBC ABSOLUTE 0.00 K/mm3 (0.00-0.02); NRBC Auto 0.0 /100 WBC (0.0-0.2); Platelet Count 281 K/mm3 (150-400); RDW Coefficient Variation 13.9 % (11.7-14.2); RDW Standard Deviation 40.7 fL (35.1-46.3)
[2024-10-04 09:30] LABS: Alanine Aminotransfer (ALT/SGP 19.0 U/L (12-78); Albumin, Blood 3.5 g/dL (3.4-5.0); Albumin/Globulin Ratio 0.9 (0.8-1.8); Anion Gap 11.0 mmol/L (3-11); Aspartate Aminotrans (AST/SGOT 17.0 U/L (12-37); Bilirubin, Total 0.6 mg/dL (0.1-1.0); Blood Urea Nitrogen 22.0 mg/dL (8-24); CO2, Blood 26.0 mmol/L (21-32); Calcium, Blood 9.1 mg/dL (8.5-10.1); Chloride, Blood 101.0 mmol/L (98-108); Creatinine, Blood 1.1 mg/dL (0.40-1.00); Globulin, Blood 3.7 g/dL (2.2-4.0); Glucose, Blood 125.0 mg/dL (70-99); Magnesium, Blood 2.3 mg/dL (1.6-2.4); Potassium, Blood 4.0 mmol/L (3.5-5.5); Sodium, Blood 134.0 mmol/L (136-145); Total Protein, Blood 7.2 g/dL (6.4-8.2)
[2024-10-04] MEDS ORDERED: Propofol 10mg/ml 20 ml Vial (Procedural) IV SCH (10:20)
[2024-10-04] MEDS ORDERED: NS 1,000 ML IV SCH (10:20)
[2024-10-04 12:40] VITALS: BP 102/60
== END 2024-10-04 12:45 | disposition home or self-care (01) ==
LOC: ER 08:31
PROVIDERS: Student in an Organized Health Care Education/Training Program
DX: I48.92 Unspecified atrial flutter (principal); I11.0 Hypertensive heart disease with heart failure; I50.20 Unspecified systolic (congestive) heart failure; Z91.040 Latex allergy status; Z88.8 Allergy status to other drugs, medicaments and biological substances; Z91.048 Other nonmedicinal substance allergy status; Z79.01 Long term (current) use of anticoagulants; Z79.899 Other long term (current) drug therapy; Z87.891 Personal history of nicotine dependence
CPT/HCPCS: 71046; 80053; 80162; 83735; 85025; 92960; 93005; 93010; 99285-25; J2704; J7030